=== PATIENT | female | born 2000 | race Caucasian/White ===

== ENCOUNTER 2018-11-24 09:06 | Emergency (ER) | payer BC ==
[2018-11-24] MEDS ORDERED: Sodium Chloride 0.9% 1,000 ML IV ONE (09:10)
[2018-11-24] MEDS ORDERED: Ondansetron 4 MG/2 ML SDV IVPUSH ONE (09:10)
[2018-11-24] MEDS ORDERED: Sodium Chloride 0.9% 10 ML Syringe FLUSH PRN (09:10)
[2018-11-24] MEDS ORDERED: Sodium Chloride 0.9% 2.5 ML Syringe FLUSH PRN (09:10)
[2018-11-24] MEDS ORDERED: Morphine 2 MG/ML Syringe IVPUSH ONE (09:10)
--- NOTE | 2018-11-24 09:12 | EDM.PDOC ---
ED HPI GENERAL MEDICAL PROBLEM - General Time Seen by Provider: 11/24/18 09:09 Source of Information: Reports: Patient History Limitations: Reports: No Limitations - History of Present Illness INITIAL COMMENTS - FREE TEXT/NARRATIVE: History of present illness: []She arrived by EMS with abdominal pain that started last night with vomiting. Patient has a history of Crohn's and kidney stones she does not feel like this is a Crohn's flareup. Her pain radiates from her left flank down to her left lower abdomen and pelvis and it feels like a kidney stone. She is currently on her period and is unsure if she has had blood in her urine. She denies any fevers or diarrhea. Review of systems: As per history of present illness and below otherwise all systems reviewed and negative. Past medical history: As per history of present illness and as reviewed below otherwise noncontributory. Surgical history: As per history of present illness and as reviewed below otherwise noncontributory. Social history: No reported history of drug or alcohol abuse. Family history: As per history of present illness and as reviewed below otherwise noncontributory. Physical exam: General: Well developed, well nourished in NAD HEENT: Atraumatic, normocephalic, pupils reactive, negative for conjunctival pallor or scleral icterus, mucous membranes moist, throat clear, neck supple, nontender, trachea midline. Lungs: Clear to auscultation, breath sounds equal bilaterally, chest nontender. Heart: S1S2, regular, negative for clicks, rubs, or JVD. Abdomen: NABS, Soft, nondistended, tender periumbilical, left lower quadrant and right lower quadrant without rebound or guarding. Negative for masses or hepatosplenomegaly. Negative for costovertebral tenderness. Pelvis: Stable nontender. Genitourinary: Deferred. Rectal: Deferred. Extremities: Atraumatic, negative for cords or calf pain. Neurovascular unremarkable. Neuro: Awake, alert, oriented. Cranial nerves II through XII unremarkable. Cerebellum unremarkable. Motor and sensory unremarkable throughout. Exam nonfocal. Skin:warm and dry Diagnostics: CBC, chemistry, lipase, UA, hCG CT abdomen and pelvis showing 3 mm nonobstructing ureteral stone Therapeutics: IV fluids, morphine, Zofran ED Course: Improved Impression: Ureteral lithiasis Prescriptions: Flomax, tramadol, Zofran Plan: Follow-up with Dr. Rooney Definitive disposition and diagnosis as appropriate pending reevaluation and review of above. Left Lower Abdominal Pain Score (Numeric/FACES): 10 - Related Data Allergies Allergy/AdvReac Type Severity Reaction Status Date / Time No Known Allergies Allergy Verified 11/24/18 10:09 Home Meds: Home Meds Ondansetron HCl [Zofran] 4 mg PO Q4HR #12 tablet 11/24/18 [Rx] Tamsulosin HCl [Flomax] 0.4 mg PO DAILY #14 cap.er.24h 11/24/18 [Rx] predniSONE [Prednisone] 20 mg PO DAILY 11/24/18 [History] traMADol HCl [Tramadol HCl] 50 mg PO Q6H PRN #16 tablet 11/24/18 [Rx] ED ROS GENERAL - Review of Systems Review Of Systems: See Below ED EXAM, GI/ABD - Physical Exam Exam: See Below Course - Vital Signs Last Recorded V/S: Last Vital Signs Temp 97.0 F 11/24/18 09:06 Pulse 58 L 11/24/18 09:06 Resp 18 11/24/18 09:06 BP 115/71 11/24/18 09:06 Pulse Ox 98 11/24/18 09:06 - Orders/Labs/Meds Orders: Active Orders 24 hr Category Date Time Status Sodium Chloride 0.9% [Saline Flush] Med 11/24/18 09:10 Active 10 ml FLUSH ASDIRECTED PRN Sodium Chloride 0.9% [Saline Flush] Med 11/24/18 09:10 Active 2.5 ml FLUSH ASDIRECTED PRN Saline Lock Insert [OM.PC] Stat Oth 11/24/18 09:10 Ordered Medication Orders Sodium Chloride (Saline Flush) 10 ml FLUSH ASDIRECTED PRN PRN Reason: Keep Vein Open Sodium Chloride (Saline Flush) 2.5 ml FLUSH ASDIRECTED PRN PRN Reason: Keep Vein Open Labs: Laboratory Tests 11/24/18 11/24/18 11/24/18 Range/Units 08:35 08:35 08:35 WBC 11.75 H (4.0-11.0) K/uL RBC 4.11 L (4.30-5.90) M/uL Hgb 9.5 L (12.0-16.0) g/dL Hct 32.1 L (36.0-46.0) % MCV 78.1 L (80.0-98.0) fL MCH 23.1 L (27.0-32.0) pg MCHC 29.6 L (31.0-37.0) g/dL RDW Std Deviation 43.7 (28.0-62.0) fl RDW Coeff of Eugenia 15 (11.0-15.0) % Plt Count 478 H (150-400) K/uL MPV 9.70 (7.40-12.00) fL Neut % (Auto) 73.9 (48.0-80.0) % Lymph % (Auto) 18.1 (16.0-40.0) % [place] % (Auto) 7.8 (0.0-15.0) % Eos % (Auto) 0.1 (0.0-7.0) % Baso % (Auto) 0.1 (0.0-1.5) % Neut # (Auto) 8.7 H (1.4-5.7) K/uL Lymph # (Auto) 2.1 (0.6-2.4) K/uL [place] # (Auto) 0.9 H (0.0-0.8) K/uL Eos # (Auto) 0.0 (0.0-0.7) K/uL Baso # (Auto) 0.0 (0.0-0.1) K/uL Nucleated RBC % 0.0 /100WBC Nucleated RBCs # 0 K/uL Sodium 140 (136-145) mmol/L Potassium 3.8 (3.5-5.1) mmol/L Chloride 104 (98-107) mmol/L Carbon Dioxide 25.9 (21.0-32.0) mmol/L BUN 16 (7.0-18.0) mg/dL Creatinine 1.0 (0.6-1.0) mg/dL Est Cr Clr Drug Dosing TNP Estimated GFR (MDRD) > 60.0 ml/min Glucose 89 (74-106) mg/dL Calcium 10.0 (8.5-10.1) mg/dL Total Bilirubin 0.3 (0.2-1.0) mg/dL AST 23 (15-37) IU/L ALT 43 (14-63) IU/L Alkaline Phosphatase 73 (46-116) U/L Total Protein 7.1 (6.4-8.2) g/dL Albumin 3.0 L (3.4-5.0) g/dL Globulin 4.1 H (2.6-4.0) g/dL Albumin/Globulin Ratio 0.7 L (0.9-1.6) Lipase 54 L (73-393) U/L HCG, Qual NEGATIVE (NEG) Meds: Medications Generic Name Dose Route Start Last Admin Trade Name Freq PRN Reason Stop Dose Admin Sodium Chloride 10 ml 11/24/18 09:10 Saline Flush FLUSH ASDIRECTED PRN Keep Vein Open Sodium Chloride 2.5 ml 11/24/18 09:10 Saline Flush FLUSH ASDIRECTED PRN Keep Vein Open Discontinued Medications Generic Name Dose Route Start Last Admin Trade Name Freq PRN Reason Stop Dose Admin Sodium Chloride 1,000 mls @ 999 mls/hr 11/24/18 09:10 11/24/18 09:21 Normal Saline IV 11/24/18 10:10 999 mls/hr .Bolus ONE Administration Iopamidol 70 ml 11/24/18 10:22 11/24/18 10:27 Isovue Multipack-370 (76%) IVPUSH 11/24/18 10:23 70 ml ONETIME STA Administration Ketorolac Tromethamine 30 mg 11/24/18 10:42 11/24/18 10:50 Toradol IVPUSH 11/24/18 10:43 30 mg ONETIME ONE Administration Metoclopramide HCl 10 mg 11/24/18 10:42 11/24/18 10:50 Reglan IV 11/24/18 10:43 10 mg ONETIME ONE Administration Morphine Sulfate 2 mg 11/24/18 09:10 11/24/18 09:21 Morphine IVPUSH 11/24/18 09:11 2 mg ONETIME ONE Administration Ondansetron HCl 4 mg 11/24/18 09:10 11/24/18 09:21 Zofran IVPUSH 11/24/18 09:11 4 mg ONETIME ONE Administration Departure - Departure Time of Disposition: 11:22 Disposition: Home, Self-Care 01 Clinical Impression: Ureterolithiasis - Discharge Information *PRESCRIPTION DRUG MONITORING PROGRAM REVIEWED*: Not Applicable *COPY OF PRESCRIPTION DRUG MONITORING REPORT IN PATIENT CHLOE: Not Applicable Prescriptions: Ondansetron HCl [Zofran] 4 mg PO Q4HR #12 tablet Tamsulosin HCl [Flomax] 0.4 mg PO DAILY #14 cap.er.24h traMADol HCl [Tramadol HCl] 50 mg PO Q6H PRN #16 tablet PRN Reason: Pain Instructions: Kidney Stones, [id number] Referrals: PCP,Unobtain [Primary Care Provider] - Forms: ED Department Discharge Additional Instructions: The following information is given to patients seen in the emergency department who are being discharged to home. This information is to outline your options for follow-up care. We provide all patients seen in our emergency department with a follow-up referral. The need for follow-up, as well as the timing and circumstances, are variable depending upon the specifics of your emergency department visit. If you don't have a primary care physician on staff, we will provide you with a referral. We always advise you to contact your personal physician following an emergency department visit to inform them of the circumstance of the visit and for follow-up with them and/or the need for any referrals to a consulting specialist. The emergency department will also refer you to a specialist when appropriate. This referral assures that you have the opportunity for follow-up care with a specialist. All of these measure are taken in an effort to provide you with optimal care, which includes your follow-up. Under all circumstances we always encourage you to contact your private physician who remains a resource for coordinating your care. When calling for follow-up care, please make the office aware that this follow-up is from your recent emergency room visit. If for any reason you are refused follow-up, please contact the [facility] Emergency Department at and asked to speak to the emergency department charge nurse. Take meds as directed, follow up with your primary care physician, return to ER if symptoms worsen or change. [facility] Primary [facility] [address] [place] [id number] [facility] Specialty Care - Urology [address] [place] [id number] - My Orders Last 24 Hours: My Active Orders 11/24/18 09:10 Sodium Chloride 0.9% [Saline Flush] 10 ml FLUSH ASDIRECTED PRN Sodium Chloride 0.9% [Saline Flush] 2.5 ml FLUSH ASDIRECTED PRN Saline Lock Insert [OM.PC] Stat - Assessment/Plan Last 24 Hours: My Active Orders 11/24/18 09:10 Sodium Chloride 0.9% [Saline Flush] 10 ml FLUSH ASDIRECTED PRN Sodium Chloride 0.9% [Saline Flush] 2.5 ml FLUSH ASDIRECTED PRN Saline Lock Insert [OM.PC] Stat
[2018-11-24 09:43] LABS: BLOOD UREA NITROGEN,BUN 16 mg/dL (7.0-18.0); CARBON DIOXIDE,CO2 25.9 mmol/L (21.0-32.0); CHLORIDE,CL 104 mmol/L (98-107); GLUCOSE RANDOM 89 mg/dL (74-106); LIPASE 54 U/L (73-393); POTASSIUM,K 3.8 mmol/L (3.5-5.1); SODIUM,NA 140 mmol/L (136-145)
[2018-11-24] MEDS ORDERED: Iopamidol 755 MG/ML 500 ML Multipack Bottle IVPUSH STA (10:22)
[2018-11-24] MEDS ORDERED: Ketorolac 30 MG/ML SDV IVPUSH ONE (10:42)
[2018-11-24] MEDS ORDERED: Metoclopramide 10 MG/2 ML SDV IV ONE (10:42)
--- NOTE | 2018-11-24 10:52 | CT ---
INDICATION: Left lower quadrant abdominal pain. History of Crohn`s disease. TECHNIQUE: CT scan of the abdomen and pelvis with 70 cc of Isovue-370 given intravenously. FINDINGS: The lung bases are unremarkable. 1.1 x 0.7 cm capsular cyst over segment 7 of the liver. No other focal abnormalities identified in the visualized portions of the liver, spleen, pancreas, adrenal glands, and kidneys. 3 mm stone in the proximal left ureter which causes trace hydronephrosis and ureteral edema. Single nonobstructing nephrolith in the interpolar region of the right kidney. No other uroliths. No right-sided hydronephrosis. Bowel wall thickening and mucosal hyper enhancement involving the distal 10-15 cm of terminal ileum with mild adjacent adenopathy. The remainder of the GI tract is incompletely distended but shows no gross abnormalities. Trace free fluid in the pelvis. No retroperitoneal, pelvic sidewall, or mesenteric adenopathy. IMPRESSION: 1. 3 mm stone in the proximal left ureter which causes trace hydronephrosis and ureteral edema. 2. Bowel wall thickening and mucosal hyperenhancement involving the terminal ileum representing the patient`s Crohn`s disease. Dictated by Og Perkins MD @ 11/24/2018 10:51:32 AM Please note that all CT scans at this facility use dose modulation, iterative reconstruction, and/or weight-based dosing when appropriate to reduce radiation dose to as low as reasonably achievable. Dictated by: Og Perkins MD @ 11/24/2018 10:51:45 (Electronically Signed)
== END 2018-11-24 11:35 | disposition home or self-care (01) ==
LOC: MW.ED 09:06
DX: N13.2 Hydronephrosis with renal and ureteral calculous obstruction (principal); Z79.899 Other long term (current) drug therapy
CPT/HCPCS: 74177; 80053; 83690; 84703; 85025; 96361; 96374; 96375; 99284; J1885; J2270; J2405; J2765; J7040; Q9967; 99283

== ENCOUNTER 2019-01-06 10:14 | Emergency (ER) | payer BC ==
--- NOTE | 2019-01-06 10:26 | EDM.PDOC ---
ED HPI GENERAL MEDICAL PROBLEM - General Chief Complaint: Flank Pain Stated Complaint: KIDNEY STONE Time Seen by Provider: 01/06/19 10:21 Source of Information: Reports: Patient History Limitations: Reports: No Limitations - History of Present Illness INITIAL COMMENTS - FREE TEXT/NARRATIVE: HISTORY AND PHYSICAL: History of present illness: Patient is a 18-year-old female who presents to the ED today with concern right- sided flank pain and nausea since this morning. Patient states she was seen here with a kidney stone not too long ago and is unsure what side the kidney stone was on. Patient states she has not followed up with urology or with any primary care provider from that visit. Patient states that pain had resolved shortly after discharge and she has not had any pain since. Patient states starting today she began having right-sided flank pain. Patient states she has not taken anything for her symptoms. Patient has a history of Crohn's disease and ankylosing spondylitis. Patient was seen and evaluated in the ED on 11/24/18 and was found to have a 3 mm proximal left ureter stone and was sent home with instruction to follow up with the urologist and given medication for pain and flomax. Patient denies fever, chills, chest pain, shortness of breath, or cough. Denies headache, neck stiff ness, change in vision, syncope, or near syncope. Denies vomiting, diarrhea, constipation, or dysuria. Has not noted any blood in urine or stool. Review of systems: As per history of present illness and below otherwise all systems reviewed and negative. Past medical history: As per history of present illness and as reviewed below otherwise noncontributory. Surgical history: As per history of present illness and as reviewed below otherwise noncontributory. Social history: See social history for further information Family history: As per history of present illness and as reviewed below otherwise noncontributory. Physical exam: General: Patient is alert, oriented, and in no acute distress. Patient laying comfortably on exam table. HEENT: Atraumatic, normocephalic, pupils equal and reactive bilaterally, negative for conjunctival pallor or scleral icterus, mucous membranes moist, TMs normal bilaterally, throat clear, neck supple, nontender, trachea midline. No drooling or trismus noted. No meningeal signs. No hot potato voice noted. Lungs: Clear to auscultation, breath sounds equal bilaterally, chest nontender. Heart: S1S2, regular rate and rhythm without overt murmur Abdomen: Soft, nondistended, nontender. Negative for masses or hepatosplenomegaly. Positive for costovertebral tenderness of the right. Pelvis: Stable nontender. Genitourinary: Deferred. Rectal: Deferred. Skin: Intact, warm, dry. No lesions or rashes noted. Extremities: Atraumatic, negative for cords or calf pain. Neurovascular unremarkable. Neuro: Awake, alert, oriented. Cranial nerves II through XII unremarkable. Cerebellum unremarkable. Motor and sensory unremarkable throughout. Exam nonfocal. Notes: Dr. Leigh, urology collection technician, consulted on patient and has come in to personally see patient in the ED. See his official consult note for further treatment and disposition for patient. Discussed the importance for follow-up with Dr. Ceballos. Voices understanding and is agreeable to plan of care. Denies any further questions or concerns at this time. Diagnostics: UA, uhcg, CBC, CMP, UA, lipase, abdominal pelvic CT, lactate, blood cultures 2 Therapeutics: Saline, Zofran, Toradol, Rocephin Prescription: See Dr. Leigh note for further treatment/disposition Impression: Ureterolithiasis Urinary Tract Infection Plan: 1. Take medication that Dr. Ceballos has prescribed to you. You can also use Tylenol and ibuprofen as directed for pain and discomfort. 2. Follow-up with Dr. Ceballos as scheduled and as discussed. Return to the ED as needed and as discussed. Definitive disposition and diagnosis as appropriate pending reevaluation and review of above. right flank Pain Score (Numeric/FACES): 10 - Related Data Allergies Allergy/AdvReac Type Severity Reaction Status Date / Time No Known Allergies Allergy Verified 01/06/19 10:17 Home Meds: Home Meds predniSONE [Prednisone] 20 mg PO DAILY 11/24/18 [History] traMADol HCl [Tramadol HCl] 50 mg PO Q6H PRN #16 tablet 11/24/18 [Rx] Past Medical History - Past Health History Medical/Surgical History: Denies Medical/Surgical History Gastrointestinal History: Reports: Other (See Below) Other Gastrointestinal History: Crohns Genitourinary History: Reports: Renal Calculus Hematologic History: Reports: Anemia - Past Surgical History HEENT Surgical History: Reports: Adenoidectomy Social & Family History - Family History Family Medical History: Noncontributory - Tobacco Use Smoking Status *Q: Never Smoker - Recreational Drug Use Recreational Drug Use: No ED ROS GENERAL - Review of Systems Review Of Systems: ROS reveals no pertinent complaints other than HPI. ED EXAM, GENERAL - Physical Exam Exam: See Below (See dictation) Course - Vital Signs Last Recorded V/S: Last Vital Signs Temp 97.6 F 01/06/19 12:29 Pulse 61 01/06/19 12:29 Resp 18 01/06/19 12:29 BP 121/65 01/06/19 12:29 Pulse Ox 98 01/06/19 12:29 - Orders/Labs/Meds Orders: Active Orders 24 hr Category Date Time Status Notify Provider Consults [RC] ASDIRECTED Care 01/06/19 11:50 Active Consult to Physician [CONS] Stat Cons 01/06/19 11:49 Active CULTURE BLOOD [BC] Stat Lab 01/06/19 11:48 Received CULTURE BLOOD [BC] Stat Lab 01/06/19 12:12 Received CULTURE URINE [RM] Stat Lab 01/06/19 10:28 Received Blood Culture x2 Reflex Set [OM.PC] Stat Oth 01/06/19 11:32 Ordered Labs: Laboratory Tests 01/06/19 01/06/19 01/06/19 Range/Units 10:28 10:28 10:40 WBC 15.02 H (4.0-11.0) K/uL RBC 4.05 L (4.30-5.90) M/uL Hgb 10.1 L (12.0-16.0) g/dL Hct 33.8 L (36.0-46.0) % MCV 83.5 (80.0-98.0) fL MCH 24.9 L (27.0-32.0) pg MCHC 29.9 L (31.0-37.0) g/dL RDW Std Deviation 57.2 (28.0-62.0) fl RDW Coeff of Eugenia 19 H (11.0-15.0) % Plt Count 381 (150-400) K/uL MPV 9.70 (7.40-12.00) fL Add Manual Diff YES Neutrophils % (Manual) 69 (48.0-80.0) % Band Neutrophils % 2 % Lymphocytes % (Manual) 25 (16.0-40.0) % Monocytes % (Manual) 4 (0.0-15.0) % Nucleated RBC % 0.0 /100WBC Absolute Seg Neuts 10.4 H (1.4-5.7) Band Neutrophils # 0.3 Lymphocytes # (Manual) 3.8 H (0.6-2.4) Monocytes # (Manual) 0.6 (0.0-0.8) Nucleated RBCs # 0 K/uL Lactate (0.20-2.00) mmol/L Sodium (136-145) mmol/L Potassium (3.5-5.1) mmol/L Chloride (98-107) mmol/L Carbon Dioxide (21.0-32.0) mmol/L BUN (7.0-18.0) mg/dL Creatinine (0.6-1.0) mg/dL Est Cr Clr Drug Dosing mL/min Estimated GFR (MDRD) ml/min Glucose (74-106) mg/dL Calcium (8.5-10.1) mg/dL Total Bilirubin (0.2-1.0) mg/dL AST (15-37) IU/L ALT (14-63) IU/L Alkaline Phosphatase (46-116) U/L Total Protein (6.4-8.2) g/dL Albumin (3.4-5.0) g/dL Globulin (2.6-4.0) g/dL Albumin/Globulin Ratio (0.9-1.6) Lipase (73-393) U/L Urine Color DARK YELLOW Urine Appearance CLEAR Urine pH 7.0 (5.0-8.0) Ur Specific [place] 1.015 (1.001-1.035) Urine Protein 30 H (NEGATIVE) mg/dL Urine Glucose (UA) 100 H (NEGATIVE) mg/dL Urine Ketones NEGATIVE (NEGATIVE) mg/dL Urine Occult Blood TRACE-INTACT H (NEGATIVE) Urine Nitrite POSITIVE H (NEGATIVE) Urine Bilirubin NEGATIVE (NEGATIVE) Urine Urobilinogen 4.0 H (<2.0) EU/dL Ur Leukocyte Esterase TRACE H (NEGATIVE) Urine RBC 1-3 (0-2/HPF) Urine WBC 1-3 (0-5/HPF) Ur Epithelial Cells FEW (NONE-FEW) Amorphous Sediment FEW (NEGATIVE) Urine Bacteria FEW (NEGATIVE) Urine Mucus FEW (NONE-MOD) Urine HCG, Qual NEGATIVE (NEGATIVE) 10/27/19 10/27/19 Range/Units 10:40 11:48 WBC (4.0-11.0) K/uL RBC (4.30-5.90) M/uL Hgb (12.0-16.0) g/dL Hct (36.0-46.0) % MCV (80.0-98.0) fL MCH (27.0-32.0) pg MCHC (31.0-37.0) g/dL RDW Std Deviation (28.0-62.0) fl RDW Coeff of Eugenia (11.0-15.0) % Plt Count (150-400) K/uL MPV (7.40-12.00) fL Add Manual Diff Neutrophils % (Manual) (48.0-80.0) % Band Neutrophils % % Lymphocytes % (Manual) (16.0-40.0) % Monocytes % (Manual) (0.0-15.0) % Nucleated RBC % /100WBC Absolute Seg Neuts (1.4-5.7) Band Neutrophils # Lymphocytes # (Manual) (0.6-2.4) Monocytes # (Manual) (0.0-0.8) Nucleated RBCs # K/uL Lactate 1.3 (0.20-2.00) mmol/L Sodium 146 H (136-145) mmol/L Potassium 3.6 (3.5-5.1) mmol/L Chloride 108 H (98-107) mmol/L Carbon Dioxide 26.4 (21.0-32.0) mmol/L BUN 19 H (7.0-18.0) mg/dL Creatinine 1.1 H (0.6-1.0) mg/dL Est Cr Clr Drug Dosing 79.33 mL/min Estimated GFR (MDRD) > 60.0 ml/min Glucose 94 (74-106) mg/dL Calcium 9.0 (8.5-10.1) mg/dL Total Bilirubin 0.2 (0.2-1.0) mg/dL AST 11 L (15-37) IU/L ALT 17 (14-63) IU/L Alkaline Phosphatase 51 (46-116) U/L Total Protein 7.2 (6.4-8.2) g/dL Albumin 3.5 (3.4-5.0) g/dL Globulin 3.7 (2.6-4.0) g/dL Albumin/Globulin Ratio 0.9 (0.9-1.6) Lipase 68 L (73-393) U/L Urine Color Urine Appearance Urine pH (5.0-8.0) Ur Specific [place] (1.001-1.035) Urine Protein (NEGATIVE) mg/dL Urine Glucose (UA) (NEGATIVE) mg/dL Urine Ketones (NEGATIVE) mg/dL Urine Occult Blood (NEGATIVE) Urine Nitrite (NEGATIVE) Urine Bilirubin (NEGATIVE) Urine Urobilinogen (<2.0) EU/dL Ur Leukocyte Esterase (NEGATIVE) Urine RBC (0-2/HPF) Urine WBC (0-5/HPF) Ur Epithelial Cells (NONE-FEW) Amorphous Sediment (NEGATIVE) Urine Bacteria (NEGATIVE) Urine Mucus (NONE-MOD) Urine HCG, Qual (NEGATIVE) Meds: Medications Discontinued Medications Generic Name Dose Route Start Last Admin Trade Name Freq PRN Reason Stop Dose Admin Sodium Chloride 1,000 mls @ 999 mls/hr 01/06/19 10:31 01/06/19 10:40 Normal Saline IV 01/06/19 11:31 999 mls/hr BOLUS ONE Administration Ceftriaxone Sodium/Dextrose 1 50 mls @ 100 mls/hr 01/06/19 11:32 01/06/19 12: 27 gm/ Premix IV 01/06/19 12:01 100 mls/hr ONETIME ONE Administration Ketorolac Tromethamine 30 mg 01/06/19 10:39 01/06/19 10:41 Toradol IVPUSH 01/06/19 10:40 30 mg ONETIME ONE Administration Ondansetron HCl 4 mg 01/06/19 10:31 01/06/19 10:40 Zofran IVPUSH 01/06/19 10:32 4 mg ONETIME ONE Administration Departure - Departure Time of Disposition: 13:30 Disposition: Home, Self-Care 01 Clinical Impression: Ureterolithiasis Urinary tract infection Qualifiers: Urinary tract infection type: acute cystitis Hematuria presence: with hematuria Qualified Code(s): N30.01 - Acute cystitis with hematuria - Discharge Information Referrals: PCP,Unobtain [Primary Care Provider] - Forms: ED Department Discharge Additional Instructions: The following information is given to patients seen in the emergency department who are being discharged to home. This information is to outline your options for follow-up care. We provide all patients seen in our emergency department with a follow-up referral. The need for follow-up, as well as the timing and circumstances, are variable depending upon the specifics of your emergency department visit. If you don't have a primary care physician on staff, we will provide you with a referral. We always advise you to contact your personal physician following an emergency department visit to inform them of the circumstance of the visit and for follow-up with them and/or the need for any referrals to a consulting specialist. The emergency department will also refer you to a specialist when appropriate. This referral assures that you have the opportunity for follow-up care with a specialist. All of these measure are taken in an effort to provide you with optimal care, which includes your follow-up. Under all circumstances we always encourage you to contact your private physician who remains a resource for coordinating your care. When calling for follow-up care, please make the office aware that this follow-up is from your recent emergency room visit. If for any reason you are refused follow-up, please contact the [facility] Emergency Department at and asked to speak to the emergency department charge nurse. [facility] [address] [place] [address] [address] [facility] - Urology [address] [place] [id number] 1. Take medication that Dr. Ceballos has prescribed to you. You can also use Tylenol and ibuprofen as directed for pain and discomfort. 2. Follow-up with Dr. Ceballos as scheduled and as discussed. Return to the ED as needed and as discussed. - My Orders Last 24 Hours: My Active Orders 01/06/19 10:28 CULTURE URINE [RM] Stat 01/06/19 11:32 Blood Culture x2 Reflex Set [OM.PC] Stat 01/06/19 11:48 CULTURE BLOOD [BC] Stat 01/06/19 11:49 Consult to Physician [CONS] Stat 01/06/19 11:50 Notify Provider Consults [RC] ASDIRECTED 01/06/19 12:12 CULTURE BLOOD [BC] Stat - Assessment/Plan Last 24 Hours: My Active Orders 01/06/19 10:28 CULTURE URINE [RM] Stat 01/06/19 11:32 Blood Culture x2 Reflex Set [OM.PC] Stat 01/06/19 11:48 CULTURE BLOOD [BC] Stat 01/06/19 11:49 Consult to Physician [CONS] Stat 01/06/19 11:50 Notify Provider Consults [RC] ASDIRECTED 01/06/19 12:12 CULTURE BLOOD [BC] Stat
[2019-01-06] MEDS ORDERED: Sodium Chloride 0.9% 1,000 ML IV ONE (10:31)
[2019-01-06] MEDS ORDERED: Ondansetron 4 MG/2 ML SDV IVPUSH ONE (10:31)
[2019-01-06] MEDS ORDERED: Ketorolac 30 MG/ML SDV IVPUSH ONE (10:39)
[2019-01-06 11:22] LABS: BLOOD UREA NITROGEN,BUN 19 mg/dL (7.0-18.0); CARBON DIOXIDE,CO2 26.4 mmol/L (21.0-32.0); CHLORIDE,CL 108 mmol/L (98-107); GLUCOSE RANDOM 94 mg/dL (74-106); LIPASE 68 U/L (73-393); POTASSIUM,K 3.6 mmol/L (3.5-5.1); SODIUM,NA 146 mmol/L (136-145)
[2019-01-06] MEDS ORDERED: cefTRIAXone 1 GM in Premix Bag 1 BAG IV ONE (11:32)
--- NOTE | 2019-01-06 11:37 | CT ---
INDICATION: Pt w/rt flank pain, vomiting since this a.m. Hx of crohns disease. COMPARISON: CT 11/24/2018. TECHNIQUE: Routine noncontrast CT images of the abdomen and pelvis. Sagittal and coronal reformatted series were also generated and reviewed. Total exam DLP 378 mGy-cm. FINDINGS: The lower chest is unremarkable. - The liver, gallbladder, pancreas, spleen and adrenal glands have an unremarkable noncontrast appearance. There are punctate nonobstructing stones in both kidneys. Previously seen left proximal ureteral stone has passed or been removed. There is a new 4 mm right UVJ stone which results in moderate right-sided hydroureteronephrosis. The right kidney is mildly enlarged. No perinephric fluid collection. - The on opacified major vascular structures demonstrate normal course and caliber. No suspicious lymphadenopathy. Small fat containing umbilical hernia. - No bowel obstruction or ascites. Again noted is some inflammatory change and wall thickening of small bowel in the lower abdomen and pelvis, consistent with the patient`s known Crohn disease. No perforation or abscess identified. - The urinary bladder is decompressed. The uterus and adnexa are unremarkable for age. - There are no acute or aggressive osseous findings. IMPRESSION: 1. New 4 mm right UVJ stone which results in moderate right hydroureteronephrosis. 2. Mild inflammatory stranding and wall thickening of loops of small bowel in the lower abdomen and pelvis, consistent with the patient`s known Crohn disease. Findings are similar to appears to the comparison study. No perforation or abscess. 3. Other findings, as above. Dictated by Jose Braga MD @ 01/06/2019 11:35:13 AM Please note that all CT scans at this facility use dose modulation, iterative reconstruction, and/or weight-based dosing when appropriate to reduce radiation dose to as low as reasonably achievable. Dictated by: Jose Braga MD @ 01/06/2019 11:35:22 (Electronically Signed)
--- NOTE | 2019-01-06 17:38 | CONS ---
DATE OF CONSULTATION: 01/06/2019 DATE OF : 2000 PRIMARY CARE PHYSICIAN: Unobvarghese PCP DIAGNOSIS: Right lower ureteral stone. HISTORY OF PRESENT ILLNESS: A 18-year-old presents to the emergency room with sudden onset of right flank pain. She had urinary stones in the past x2. Those 2 past times, she passed her stones. We do not have a stone analysis. PAST MEDICAL HISTORY: Medical history is significant for diagnosis of Crohn disease, which had its implications for urinary stones. She also has ovarian cystic disease. PHYSICAL EXAMINATION: VITAL SIGNS: Temperature is normal, blood pressure is normal, pulse is normal at 60. GENERAL: She is alert. She is oriented. She is not at this point in pain. ABDOMINAL EXAM: Mild tenderness over the right CVA, right lumbar region, right lower quadrant. Left side is normal, abdomen is soft. LABORATORY DATA: Her white blood count is 15,000. Her UA showed positive leukocyte esterase, trace nitrite and only 1 to 5 white blood cells per high-power field. IMPRESSION: Right ureteral stone with a small probability of urinary tract infection. I think it is reasonable at this point to send her home on antibiotics for the next couple of days and a strainer and will see me in 2 days. If she has not passed the stone, then I will arrange for her to have ureteroscopy and stone removal. NIGHAT VILLARREAL /[id number]
== END 2019-01-06 13:45 | disposition home or self-care (01) ==
LOC: MW.ED 10:14
DX: N20.1 Calculus of ureter (principal); N30.01 Acute cystitis with hematuria
CPT/HCPCS: 36415; 74176; 80053; 81001; 81025; 83605; 83690; 85025; 87040; 87086; 96361; 96365; 96375; 99284; J0696; J1885; J2405; J7040

== ENCOUNTER 2019-03-10 19:09 | Emergency (ER) | payer BC ==
--- NOTE | 2019-03-10 20:56 | EDM.PDOC ---
ED HPI GENERAL MEDICAL PROBLEM - General Chief Complaint: ENT Problem Stated Complaint: FLU SYMPTOMS Time Seen by Provider: 03/10/19 19:39 Source of Information: Reports: Patient History Limitations: Reports: No Limitations - History of Present Illness INITIAL COMMENTS - FREE TEXT/NARRATIVE: Presents reporting a couple day history of cough, stuffy nose, sore throat and headache. Exposed to numerous people at her workplace who have the same or similar symptoms. She did not have a flu shot. She does not smoke cigarettes. On control. - Related Data Allergies Allergy/AdvReac Type Severity Reaction Status Date / Time No Known Allergies Allergy Verified 03/10/19 19:21 Home Meds: Home Meds . [No Known Home Meds] 03/10/19 [History] Past Medical History - Past Health History Medical/Surgical History: Denies Medical/Surgical History Gastrointestinal History: Reports: Other (See Below) Other Gastrointestinal History: Crohns Genitourinary History: Reports: Renal Calculus Hematologic History: Reports: Anemia - Infectious Disease History Infectious Disease History: Reports: None - Past Surgical History HEENT Surgical History: Reports: Adenoidectomy Social & Family History - Family History Family Medical History: Noncontributory - Tobacco Use Smoking Status *Q: Never Smoker Second Hand Smoke Exposure: No - Caffeine Use Caffeine Use: Reports: None - Recreational Drug Use Recreational Drug Use: No ED ROS ENT - Review of Systems Review Of Systems: Comprehensive ROS is negative, except as noted in HPI. ED EXAM, ENT - Physical Exam Exam: See Below Exam Limited By: No Limitations General Appearance: Alert, No Apparent Distress Ears: Normal External Exam, Normal TMs Nose: Normal Inspection Mouth/Throat: Pharyngeal Erythema (mild). No: Tonsillar Erythema, Tonsillar Exudates, Tonsillar Swelling Head: Atraumatic, Normocephalic Neck: Normal Inspection, Supple, Non-Tender, Full Range of Motion. No: Lymphadenopathy (L), Lymphadenopathy (R) Respiratory/Chest: No Respiratory Distress, Lungs Clear, Normal Breath Sounds Cardiovascular: Normal Peripheral Pulses, Regular Rate, Rhythm, No Murmur Neurological: Alert, Oriented Psychiatric: Normal Affect, Normal Mood Skin: Warm, Dry, Intact, Normal Color, No Rash Lymphatic: No Adenopathy Course - Vital Signs Last Recorded V/S: Last Vital Signs Temp 36.8 C 03/10/19 19:21 Pulse 94 03/10/19 19:21 Resp 16 12/29/19 19:21 BP 119/61 03/10/19 19:21 Pulse Ox 97 03/10/19 19:21 - Orders/Labs/Meds Orders: Active Orders 24 hr Category Date Time Status CULTURE STREP A CONFIRMATION [RM] Stat Lab 03/10/19 19:26 Results INFLUENZA A+B AG SCREEN [RM] Stat Lab 03/10/19 20:50 Ordered STREP SCRN A RAPID W CULT CONF [RM] Stat Lab 03/10/19 19:26 Results Departure - Departure Time of Disposition: 20:54 Disposition: Home, Self-Care 01 Condition: Good Clinical Impression: Viral syndrome - Discharge Information Referrals: PCP,None [Primary Care Provider] - [facility] [Outside] [facility] [Outside] Additional Instructions: The following information is given to patients seen in the emergency department who are being discharged to home. This information is to outline your options for follow-up care. We provide all patients seen in our emergency department with a follow-up referral. The need for follow-up, as well as the timing and circumstances, are variable depending upon the specifics of your emergency department visit. If you don't have a primary care physician on staff, we will provide you with a referral. We always advise you to contact your personal physician following an emergency department visit to inform them of the circumstance of the visit and for follow-up with them and/or the need for any referrals to a consulting specialist. The emergency department will also refer you to a specialist when appropriate. This referral assures that you have the opportunity for follow-up care with a specialist. All of these measure are taken in an effort to provide you with optimal care, which includes your follow-up. Under all circumstances we always encourage you to contact your private physician who remains a resource for coordinating your care. When calling for follow-up care, please make the office aware that this follow-up is from your recent emergency room visit. If for any reason you are refused follow-up, please contact the [facility] Emergency Department at and asked to speak to the emergency department charge nurse. 1. Drink plenty of fluids and rest 2. Seasonal flu vaccine 3. I'll or ibuprofen as needed for body aches, headache, sore throat Sepsis Event Note - Evaluation Sepsis Screening Result: No Definite Risk - Focused Exam Vital Signs: Vital Signs Temp Pulse Resp BP Pulse Ox 03/10/19 19:21 36.8 C 94 16 119/61 97 Date Exam was Performed: 03/10/19 Time Exam was Performed: 20:52 - My Orders Last 24 Hours: My Active Orders 03/10/19 20:50 INFLUENZA A+B AG SCREEN [RM] Stat - Assessment/Plan Last 24 Hours: My Active Orders 03/10/19 20:50 INFLUENZA A+B AG SCREEN [RM] Stat
== END 2019-03-10 21:00 | disposition home or self-care (01) ==
LOC: MW.ED 19:09
DX: B34.9 Viral infection, unspecified (principal)
CPT/HCPCS: 87081; 87804; 87880-QW; 99282; 99284

== ENCOUNTER 2019-04-01 20:55 | Emergency (ER) | payer BC ==
--- NOTE | 2019-04-01 21:22 | EDM.PDOC ---
ED HPI GENERAL MEDICAL PROBLEM - General Chief Complaint: General Stated Complaint: LOW IRON LEVELS Time Seen by Provider: 04/01/19 21:21 Source of Information: Reports: Patient History Limitations: Reports: No Limitations - History of Present Illness INITIAL COMMENTS - FREE TEXT/NARRATIVE: HISTORY AND PHYSICAL: History of present illness: Patient is a 18-year-old female presents to the ED with complaint of possible anemia. She states for the past few days she is having headache, lightheaded, neck pain. She states when she had these symptoms last time her hemoglobin was 8. She states she has not required a transfusion. She has seen her PCP in the past for this and determined her anemia was secondary to heavy menstrual periods. Patient is on OCPs and states she has had her period on and off for the past few weeks. She denies chest pain, shortness of breath, nausea, vomiting , abdominal, dysuria, hematuria, melena, hematochezia. Review of systems: As per history of present illness and below otherwise all systems reviewed and negative. Past medical history: As per history of present illness and as reviewed below otherwise noncontributory. Surgical history: As per history of present illness and as reviewed below otherwise noncontributory. Social history: No reported history of drug or alcohol abuse. Family history: As per history of present illness and as reviewed below otherwise noncontributory. Physical exam: General: Patient sitting comfortably in no acute distress and nontoxic appearing HEENT: Atraumatic, normocephalic, pupils reactive, negative for conjunctival pallor or scleral icterus, mucous membranes moist, throat clear, neck supple, nontender, trachea midline. No meningeal signs. Lungs: Clear to auscultation, breath sounds equal bilaterally, chest nontender. Heart: S1S2, regular, negative for clicks, rubs, or overt murmur. Abdomen: Soft, nondistended, nontender. Negative for masses or hepatosplenomegaly. Negative for costovertebral tenderness. No rigidity, rebound , guarding. Pelvis: Stable nontender. Genitourinary: Deferred. Rectal: Deferred. Extremities: Atraumatic, negative for cords or calf pain. Neurovascular unremarkable. Neuro: Awake, alert, oriented. Cranial nerves II through XII unremarkable. Cerebellum unremarkable. Motor and sensory unremarkable throughout. Exam nonfocal. Notes: Diagnostics: CBC, CMP, UA, hcg Therapeutics: none Prescriptions: Impression: Medical screening exam, dizziness Plan: Follow up with primary care provider Return to ED as needed as discussed Definitive disposition and diagnosis as appropriate pending reevaluation and review of above. - Related Data Allergies Allergy/AdvReac Type Severity Reaction Status Date / Time No Known Allergies Allergy Verified 04/01/19 21:06 Home Meds: Home Meds Control 04/01/19 [History] Past Medical History - Past Health History Medical/Surgical History: Denies Medical/Surgical History Cardiovascular History: Reports: None Respiratory History: Reports: None Gastrointestinal History: Reports: Other (See Below) Other Gastrointestinal History: Crohns Genitourinary History: Reports: Renal Calculus [employer] History: Reports: None Musculoskeletal History: Reports: None Neurological History: Reports: None Psychiatric History: Reports: None Endocrine/Metabolic History: Reports: None Hematologic History: Reports: Anemia Dermatologic History: Reports: None - Infectious Disease History Infectious Disease History: Reports: None - Past Surgical History HEENT Surgical History: Reports: Adenoidectomy Social & Family History - Family History Family Medical History: Noncontributory - Tobacco Use Smoking Status *Q: Never Smoker - Caffeine Use Caffeine Use: Reports: None - Recreational Drug Use Recreational Drug Use: No ED ROS GENERAL - Review of Systems Review Of Systems: Comprehensive ROS is negative, except as noted in HPI. ED EXAM, GENERAL - Physical Exam Exam: See Below (see dictation) Course - Vital Signs Last Recorded V/S: Last Vital Signs Temp 97.8 F 04/01/19 21:07 Pulse 101 H 04/01/19 21:07 Resp 14 04/01/19 21:07 BP 136/70 04/01/19 21:07 Pulse Ox 99 04/01/19 21:07 - Orders/Labs/Meds Labs: Laboratory Tests 04/01/19 04/01/19 04/01/19 Range/Units 21:28 21:28 21:30 WBC 6.62 (4.0-11.0) K/uL RBC 3.85 L (4.30-5.90) M/uL Hgb 10.6 L (12.0-16.0) g/dL Hct 32.7 L (36.0-46.0) % MCV 84.9 (80.0-98.0) fL MCH 27.5 (27.0-32.0) pg MCHC 32.4 (31.0-37.0) g/dL RDW Std Deviation 42.8 (28.0-62.0) fl RDW Coeff of [place] 14 (11.0-15.0) % Plt Count 329 (150-400) K/uL MPV 11.10 (7.40-12.00) fL Neut % (Auto) 60.8 (48.0-80.0) % Lymph % (Auto) 31.6 (16.0-40.0) % [place] % (Auto) 5.7 (0.0-15.0) % Eos % (Auto) 1.4 (0.0-7.0) % Baso % (Auto) 0.5 (0.0-1.5) % Neut # (Auto) 4.0 (1.4-5.7) K/uL Lymph # (Auto) 2.1 (0.6-2.4) K/uL [place] # (Auto) 0.4 (0.0-0.8) K/uL Eos # (Auto) 0.1 (0.0-0.7) K/uL Baso # (Auto) 0.0 (0.0-0.1) K/uL Nucleated RBC % 0.0 /100WBC Nucleated RBCs # 0 K/uL Sodium 140 (136-145) mmol/L Potassium 3.9 (3.5-5.1) mmol/L Chloride 105 (98-107) mmol/L Carbon Dioxide 25.7 (21.0-32.0) mmol/L BUN 12 (7.0-18.0) mg/dL Creatinine 0.8 (0.6-1.0) mg/dL Est Cr Clr Drug Dosing 109.08 mL/min Estimated GFR (MDRD) > 60.0 ml/min Glucose 91 (74-106) mg/dL Calcium 9.0 (8.5-10.1) mg/dL Total Bilirubin 0.2 (0.2-1.0) mg/dL AST 12 L (15-37) IU/L ALT 19 (14-63) IU/L Alkaline Phosphatase 59 (46-116) U/L Total Protein 7.2 (6.4-8.2) g/dL Albumin 3.5 (3.4-5.0) g/dL Globulin 3.7 (2.6-4.0) g/dL Albumin/Globulin Ratio 0.9 (0.9-1.6) Urine Color YELLOW Urine Appearance CLEAR Urine pH 7.0 (5.0-8.0) Ur Specific [place] 1.015 (1.001-1.035) Urine Protein NEGATIVE (NEGATIVE) mg/dL Urine Glucose (UA) NEGATIVE (NEGATIVE) mg/dL Urine Ketones NEGATIVE (NEGATIVE) mg/dL Urine Occult Blood NEGATIVE (NEGATIVE) Urine Nitrite NEGATIVE (NEGATIVE) Urine Bilirubin NEGATIVE (NEGATIVE) Urine Urobilinogen 0.2 (<2.0) EU/dL Ur Leukocyte Esterase NEGATIVE (NEGATIVE) Urine HCG, Qual (NEGATIVE) 04/01/19 Range/Units 21:30 WBC (4.0-11.0) K/uL RBC (4.30-5.90) M/uL Hgb (12.0-16.0) g/dL Hct (36.0-46.0) % MCV (80.0-98.0) fL MCH (27.0-32.0) pg MCHC (31.0-37.0) g/dL RDW Std Deviation (28.0-62.0) fl RDW Coeff of [place] (11.0-15.0) % Plt Count (150-400) K/uL MPV (7.40-12.00) fL Neut % (Auto) (48.0-80.0) % Lymph % (Auto) (16.0-40.0) % [place] % (Auto) (0.0-15.0) % Eos % (Auto) (0.0-7.0) % Baso % (Auto) (0.0-1.5) % Neut # (Auto) (1.4-5.7) K/uL Lymph # (Auto) (0.6-2.4) K/uL [place] # (Auto) (0.0-0.8) K/uL Eos # (Auto) (0.0-0.7) K/uL Baso # (Auto) (0.0-0.1) K/uL Nucleated RBC % /100WBC Nucleated RBCs # K/uL Sodium (136-145) mmol/L Potassium (3.5-5.1) mmol/L Chloride (98-107) mmol/L Carbon Dioxide (21.0-32.0) mmol/L BUN (7.0-18.0) mg/dL Creatinine (0.6-1.0) mg/dL Est Cr Clr Drug Dosing mL/min Estimated GFR (MDRD) ml/min Glucose (74-106) mg/dL Calcium (8.5-10.1) mg/dL Total Bilirubin (0.2-1.0) mg/dL AST (15-37) IU/L ALT (14-63) IU/L Alkaline Phosphatase (46-116) U/L Total Protein (6.4-8.2) g/dL Albumin (3.4-5.0) g/dL Globulin (2.6-4.0) g/dL Albumin/Globulin Ratio (0.9-1.6) Urine Color Urine Appearance Urine pH (5.0-8.0) Ur Specific [place] (1.001-1.035) Urine Protein (NEGATIVE) mg/dL Urine Glucose (UA) (NEGATIVE) mg/dL Urine Ketones (NEGATIVE) mg/dL Urine Occult Blood (NEGATIVE) Urine Nitrite (NEGATIVE) Urine Bilirubin (NEGATIVE) Urine Urobilinogen (<2.0) EU/dL Ur Leukocyte Esterase (NEGATIVE) Urine HCG, Qual NEGATIVE (NEGATIVE) Departure - Departure Time of Disposition: 22:03 Disposition: Home, Self-Care 01 Condition: Good Clinical Impression: Encounter for medical screening examination - Discharge Information Referrals: PCP,None [Primary Care Provider] - Forms: ED Department Discharge Additional Instructions: The following information is given to patients seen in the emergency department who are being discharged to home. This information is to outline your options for follow-up care. We provide all patients seen in our emergency department with a follow-up referral. The need for follow-up, as well as the timing and circumstances, are variable depending upon the specifics of your emergency department visit. If you don't have a primary care physician on staff, we will provide you with a referral. We always advise you to contact your personal physician following an emergency department visit to inform them of the circumstance of the visit and for follow-up with them and/or the need for any referrals to a consulting specialist. The emergency department will also refer you to a specialist when appropriate. This referral assures that you have the opportunity for follow-up care with a specialist. All of these measure are taken in an effort to provide you with optimal care, which includes your follow-up. Under all circumstances we always encourage you to contact your private physician who remains a resource for coordinating your care. When calling for follow-up care, please make the office aware that this follow-up is from your recent emergency room visit. If for any reason you are refused follow-up, please contact the [facility] Emergency Department at and asked to speak to the emergency department charge nurse. [facility] [address] [place] [id number] [address] [address] Follow up with primary care provider Return to ED as needed as discussed Sepsis Event Note - Evaluation Sepsis Screening Result: No Definite Risk - Focused Exam Vital Signs: Vital Signs Temp Pulse Resp BP Pulse Ox 04/01/19 21:07 97.8 F 101 H 14 136/70 99 Date Exam was Performed: 04/01/19 Time Exam was Performed: 22:04
[2019-04-01 21:59] LABS: BLOOD UREA NITROGEN,BUN 12 mg/dL (7.0-18.0); CARBON DIOXIDE,CO2 25.7 mmol/L (21.0-32.0); CHLORIDE,CL 105 mmol/L (98-107); GLUCOSE RANDOM 91 mg/dL (74-106); POTASSIUM,K 3.9 mmol/L (3.5-5.1); SODIUM,NA 140 mmol/L (136-145)
== END 2019-04-01 22:13 | disposition home or self-care (01) ==
LOC: MW.ED 20:55
DX: R42 Dizziness and giddiness (principal)
CPT/HCPCS: 36415; 80053; 81003; 81025; 85025; 99282; 99284

== ENCOUNTER 2019-04-15 21:48 | Emergency (ER) | payer BC ==
--- NOTE | 2019-04-15 22:53 | EDM.PDOC ---
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 She denies any trauma to the wrist and says that certain movements will trigger it and since she was a child she has not followed up with an nurse orthopedic. She also has migraine headaches and was told by her neurologist at home to not take ibuprofen or Tylenol. She denies any new injuries and has no numbness or tingling in her hand and no proximal forearm elbow or shoulder pain. Review of systems: As per history of present illness and below otherwise all systems reviewed and negative. Past medical history: As per history of present illness and as reviewed below otherwise noncontributory. Surgical history: As per history of present illness and as reviewed below otherwise noncontributory. Social history: No reported history of drug or alcohol abuse. Family history: As per history of present illness and as reviewed below otherwise noncontributory. Physical exam: HEENT: Atraumatic, normocephalic,, negative for conjunctival pallor or scleral icterus, mucous membranes moist, throat clear, neck supple, nontender, trachea midline. Lungs: Clear to auscultation, breath sounds equal bilaterally, chest nontender. Heart: S1S2, regular, and rhythm no overt murmurs Abdomen: Soft, nondistended, nontender. Negative for masses or hepatosplenomegaly. Negative for costovertebral tenderness. Pelvis: Stable nontender. Genitourinary: Deferred. Rectal: Deferred. Extremities: Atraumatic, and full range of motion of all extremities including the left wrist where there is no soft tissue swelling no ecchymosis and only minimal tenderness with certain movements and palpation. There is no distal hand or finger tenderness defects or deformities and no proximal forearm elbow or shoulder defects or deformities. There is no erythema and no joint swelling. The legs are negative for cords or calf pain. Neurovascular unremarkable. Neuro: Awake, alert, oriented. Cranial nerves II through XII unremarkable. Cerebellum unremarkable. Motor and sensory unremarkable throughout. Exam nonfocal. Diagnostics: X-ray left wrist Therapeutics: Velcro splint Impression: Left wrist pain acute on chronic Definitive disposition and diagnosis as appropriate pending reevaluation and review of above. L wrist Pain Score (Numeric/FACES): 8 - Related Data Allergies Allergy/AdvReac Type Severity Reaction Status Date / Time No Known Allergies Allergy Verified 04/15/19 22:08 Home Meds: Home Meds . [No Known Home Meds] 04/15/19 [History] Past Medical History - Past Health History Medical/Surgical History: Denies Medical/Surgical History HEENT History: Reports: None Cardiovascular History: Reports: None Respiratory History: Reports: Asthma Gastrointestinal History: Reports: Other (See Below) Other Gastrointestinal History: Crohns Genitourinary History: Reports: Renal Calculus, Other (See Below) Other Genitourinary History: PCOS [employer] History: Reports: Polycystic Ovaries Musculoskeletal History: Reports: None Neurological History: Reports: None Psychiatric History: Reports: Anxiety, Bipolar, Depression Endocrine/Metabolic History: Reports: None Hematologic History: Reports: Anemia Dermatologic History: Reports: None - Infectious Disease History Infectious Disease History: Reports: Chicken Pox - Past Surgical History HEENT Surgical History: Reports: Myringotomy w Tube(s), Tonsillectomy Respiratory Surgical History: Reports: None GI Surgical History: Reports: None Female Surgical History: Reports: None Social & Family History - Family History Family Medical History: Noncontributory - Tobacco Use Smoking Status *Q: Never Smoker Second Hand Smoke Exposure: No - Caffeine Use Caffeine Use: Reports: Coffee, Soda - Recreational Drug Use Recreational Drug Use: No Review of Systems - Review of Systems Review Of Systems: Comprehensive ROS is negative, except as noted in HPI. ED EXAM, GENERAL - Physical Exam Exam: See Below (See dictation) Course - Vital Signs Last Recorded V/S: Last Vital Signs Temp 36.8 C 04/15/19 22:03 Pulse 88 04/15/19 22:03 Resp 18 04/15/19 22:03 BP 131/60 04/15/19 22:03 Pulse Ox 98 04/15/19 22:03 - Orders/Labs/Meds Orders: Active Orders 24 hr Category Date Time Status Wrist Comp Min 3V Lt [CR] Stat Exams 02/03/20 21:51 Taken Departure - Departure Time of Disposition: 22:52 Disposition: Home, Self-Care 01 Condition: Good Clinical Impression: Left wrist pain - Discharge Information Referrals: PCP,None [Primary Care Provider] - Additional Instructions: The following information is given to patients seen in the emergency department who are being discharged to home. This information is to outline your options for follow-up care. We provide all patients seen in our emergency department with a follow-up referral. The need for follow-up, as well as the timing and circumstances, are variable depending upon the specifics of your emergency department visit. If you don't have a primary care physician on staff, we will provide you with a referral. We always advise you to contact your personal physician following an emergency department visit to inform them of the circumstance of the visit and for follow-up with them and/or the need for any referrals to a consulting specialist. The emergency department will also refer you to a specialist when appropriate. This referral assures that you have the opportunity for followup care with a specialist. All of these measure are taken in an effort to provide you with optimal care, which includes your followup. Under all circumstances we always encourage you to contact your private physician who remains a resource for coordinating your care. When calling for followup care, please make the office aware that this follow-up is from your recent emergency room visit. If for any reason you are refused follow-up, please contact the [facility] emergency department at and ask to speak to the emergency department charge nurse. [facility] Specialty Care - Orthopedic Clinic Professional Building [address] [place] [address], [address] [place] [address] Wear Velcro splint for comfort and try to reduce stressful activities on this area. Ice and elevate as much as possible and call and follow-up with orthopedics clinic for further evaluation and care. Return to ER as needed and as discussed Sepsis Event Note - Evaluation Sepsis Screening Result: No Definite Risk - Focused Exam Vital Signs: Vital Signs Temp Pulse Resp BP Pulse Ox 04/15/19 22:03 36.8 C 88 18 131/60 98 Date Exam was Performed: 04/15/19 Time Exam was Performed: 22:50 - My Orders Last 24 Hours: My Active Orders 04/15/19 21:51 Wrist Comp Min 3V Lt [CR] Stat - Assessment/Plan Last 24 Hours: My Active Orders 04/15/19 21:51 Wrist Comp Min 3V Lt [CR] Stat
--- NOTE | 2019-04-15 22:57 | CR ---
INDICATION: Left wrist pain. COMPARISON: None. FINDINGS/IMPRESSION: Left wrist, three views. 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 No fracture or other acute findings. Unremarkable soft tissues. Dictated by Jf Barker MD @ 04/15/2019 10:53:19 PM Dictated by: Jf Barker MD @ 04/15/2019 22:56:21 (Electronically Signed)
== END 2019-04-15 23:04 | disposition home or self-care (01) ==
LOC: MW.ED 21:48
DX: M25.532 Pain in left wrist (principal); G89.29 Other chronic pain
CPT/HCPCS: 73110-26-LT; 73110-LT; 99283; 99283-25

== ENCOUNTER 2019-07-03 18:30 | Emergency (ER) | payer BC, OTHER ==
[2019-07-03] MEDS ORDERED: Sodium Chloride 0.9% 1,000 ML IV ONE (19:48)
--- NOTE | 2019-07-03 19:52 | EDM.PDOC ---
ED HPI GENERAL MEDICAL PROBLEM - General Chief Complaint: Headache Stated Complaint: MIGRAINE Time Seen by Provider: 07/03/19 18:32 Source of Information: Reports: Patient History Limitations: Reports: No Limitations - History of Present Illness INITIAL COMMENTS - FREE TEXT/NARRATIVE: HISTORY AND PHYSICAL: History of present illness: Patient is a 18-year-old female who presents to the ED today with concern of a migraine that is been ongoing for the past 5 days. Patient states she does have a history of migraines and has been on medications for them in the past but states that she had side effects from the medication so has not been on them for several years. Patient states that over the last 5 days she has had a migraine and states that it is throbbing in nature and she does have some nausea and photophobia. Patient states that her symptoms with today are typical of her usual migraines. Patient denies any head injury or trauma. Patient denies any other symptoms or concerns. Patient denies fever, chills, chest pain, shortness of breath, or cough. Denies neck stiff ness, change in vision, syncope, or near syncope. Denies nausea, vomiting, abdominal pain, diarrhea, constipation, or dysuria. Has not noted any blood in urine or stool. Patient has been eating and drinking appropriately. Review of systems: As per history of present illness and below otherwise all systems reviewed and negative. Past medical history: As per history of present illness and as reviewed below otherwise noncontributory. Surgical history: As per history of present illness and as reviewed below otherwise noncontributory. Social history: See social history for further information Family history: As per history of present illness and as reviewed below otherwise noncontributory. Physical exam: General: Patient is alert, oriented, and in no acute distress. Patient sitting comfortably on exam table. HEENT: Atraumatic, normocephalic, pupils equal and reactive bilaterally, negative for conjunctival pallor or scleral icterus, mucous membranes moist, TMs normal bilaterally, throat clear, neck supple, nontender, trachea midline. No drooling or trismus noted. No meningeal signs. No hot potato voice noted. Lungs: Clear to auscultation, breath sounds equal bilaterally, chest nontender. Heart: S1S2, regular rate and rhythm without overt murmur Abdomen: Soft, nondistended, nontender. Negative for masses or hepatosplenomegaly. Negative for costovertebral tenderness. Pelvis: Stable nontender. Genitourinary: Deferred. Rectal: Deferred. Skin: Intact, warm, dry. No lesions or rashes noted. Extremities: Atraumatic, negative for cords or calf pain. Neurovascular unremarkable. Neuro: Awake, alert, oriented. Cranial nerves II through XII unremarkable. Cerebellum unremarkable. Motor and sensory unremarkable throughout. Exam nonfocal. Notes: Patient states she does have a h/o anemia and has not had this checked in quite some time and is worried it could be triggering her migrane today. Will check a CBC. Hgb today is 10.5. Compared to past visits on file, this is typical/normal for patients hgb level. Patient expresses improvement of symptoms today in the ED. Discussed importance for follow-up with a primary care provider. Voices understanding and is agreeable to plan of care. Denies any further questions or concerns at this time. Diagnostics: Urine hCG, CBC Therapeutics: Saline, Zofran, Toradol, Reglan, Benadryl Prescription: None Impression: Migraine, improved Anemia Plan: 1. Encourage small but frequent sips of fluid to prevent dehydration. 2. You can alternate ibuprofen and Tylenol as directed for pain and discomfort. 3. Follow-up with a primary care provider as discussed. Return to the ED as needed and as discussed. Definitive disposition and diagnosis as appropriate pending reevaluation and review of above. headache Pain Score (Numeric/FACES): 8 - Related Data Allergies Allergy/AdvReac Type Severity Reaction Status Date / Time No Known Allergies Allergy Verified 07/03/19 19:14 Home Meds: Home Meds . [No Known Home Meds] 04/15/19 [History] Past Medical History - Past Health History Medical/Surgical History: Denies Medical/Surgical History HEENT History: Reports: None Cardiovascular History: Reports: None Respiratory History: Reports: Asthma Gastrointestinal History: Reports: Other (See Below) Other Gastrointestinal History: Crohns Genitourinary History: Reports: Renal Calculus, Other (See Below) Other Genitourinary History: PCOS [employer] History: Reports: Polycystic Ovaries Musculoskeletal History: Reports: None Neurological History: Reports: None Psychiatric History: Reports: Anxiety, Bipolar, Depression Endocrine/Metabolic History: Reports: None Hematologic History: Reports: Anemia Dermatologic History: Reports: None - Infectious Disease History Infectious Disease History: Reports: Chicken Pox - Past Surgical History HEENT Surgical History: Reports: Myringotomy w Tube(s), Tonsillectomy Respiratory Surgical History: Reports: None GI Surgical History: Reports: None Female Surgical History: Reports: None Social & Family History - Family History Family Medical History: Noncontributory - Caffeine Use Caffeine Use: Reports: Coffee, Soda ED ROS GENERAL - Review of Systems Review Of Systems: Comprehensive ROS is negative, except as noted in HPI. ED EXAM, GENERAL - Physical Exam Exam: See Below (see dictation) Course - Vital Signs Last Recorded V/S: Last Vital Signs Temp 97.4 F 07/03/19 19:13 Pulse 83 07/03/19 19:13 Resp 18 07/03/19 19:13 BP 122/77 07/03/19 19:13 Pulse Ox 99 07/03/19 19:13 - Orders/Labs/Meds Labs: Laboratory Tests 07/03/19 07/03/19 Range/Units 20:11 21:27 WBC 4.01 (4.0-11.0) K/uL RBC 3.93 L (4.30-5.90) M/uL Hgb 10.5 L (12.0-16.0) g/dL Hct 32.9 L (36.0-46.0) % MCV 83.7 (80.0-98.0) fL MCH 26.7 L (27.0-32.0) pg MCHC 31.9 (31.0-37.0) g/dL RDW Std Deviation 43.0 (28.0-62.0) fl RDW Coeff of Eugenia 14 (11.0-15.0) % Plt Count 200 (150-400) K/uL MPV 10.40 (7.40-12.00) fL Neut % (Auto) 57.7 (48.0-80.0) % Lymph % (Auto) 29.9 (16.0-40.0) % Routt % (Auto) 10.2 (0.0-15.0) % Eos % (Auto) 1.7 (0.0-7.0) % Baso % (Auto) 0.5 (0.0-1.5) % Neut # (Auto) 2.3 (1.4-5.7) K/uL Lymph # (Auto) 1.2 (0.6-2.4) K/uL Routt # (Auto) 0.4 (0.0-0.8) K/uL Eos # (Auto) 0.1 (0.0-0.7) K/uL Baso # (Auto) 0.0 (0.0-0.1) K/uL Nucleated RBC % 0.0 /100WBC Nucleated RBCs # 0 K/uL Urine HCG, Qual NEGATIVE (NEGATIVE) Meds: Medications Discontinued Medications Generic Name Dose Route Start Last Admin Trade Name Freq PRN Reason Stop Dose Admin Diphenhydramine HCl 50 mg 07/03/19 20:35 07/03/19 20:55 Benadryl IVPUSH 07/03/19 20:36 50 mg ONETIME ONE Administration Sodium Chloride 1,000 mls @ 999 mls/hr 07/03/19 19:48 07/03/19 20:55 Normal Saline IV 07/03/19 20:48 999 mls/hr STAT ONE Administration Ketorolac Tromethamine 30 mg 07/03/19 20:35 07/03/19 20:55 Toradol IVPUSH 07/03/19 20:36 30 mg ONETIME ONE Administration Metoclopramide HCl 10 mg 07/03/19 20:35 07/03/19 20:55 Reglan IV 07/03/19 20:36 10 mg ONETIME ONE Administration Ondansetron HCl 4 mg 07/03/19 20:35 07/03/19 20:55 Zofran IVPUSH 07/03/19 20:36 4 mg ONETIME ONE Administration Departure - Departure Time of Disposition: 21:35 Disposition: Home, Self-Care 01 Clinical Impression: Migraine Anemia Qualifiers: Anemia type: unspecified type Qualified Code(s): D64.9 - Anemia, unspecified - Discharge Information Referrals: PCP,None [Primary Care Provider] - Forms: ED Department Discharge Additional Instructions: The following information is given to patients seen in the emergency department who are being discharged to home. This information is to outline your options for follow-up care. We provide all patients seen in our emergency department with a follow-up referral. The need for follow-up, as well as the timing and circumstances, are variable depending upon the specifics of your emergency department visit. If you don't have a primary care physician on staff, we will provide you with a referral. We always advise you to contact your personal physician following an emergency department visit to inform them of the circumstance of the visit and for follow-up with them and/or the need for any referrals to a consulting specialist. The emergency department will also refer you to a specialist when appropriate. This referral assures that you have the opportunity for follow-up care with a specialist. All of these measure are taken in an effort to provide you with optimal care, which includes your follow-up. Under all circumstances we always encourage you to contact your private physician who remains a resource for coordinating your care. When calling for follow-up care, please make the office aware that this follow-up is from your recent emergency room visit. If for any reason you are refused follow-up, please contact the [facility] Emergency Department at and asked to speak to the emergency department charge nurse. [facility] [address] [place] [address] [address] [address] [address] 1. Encourage small but frequent sips of fluid to prevent dehydration. 2. You can alternate ibuprofen and Tylenol as directed for pain and discomfort. 3. Follow-up with a primary care provider as discussed. Return to the ED as needed and as discussed. Sepsis Event Note - Evaluation Sepsis Screening Result: No Definite Risk - Focused Exam Vital Signs: Vital Signs Temp Pulse Resp BP Pulse Ox 07/03/19 19:13 97.4 F 83 18 122/77 99 Date Exam was Performed: 07/03/19 Time Exam was Performed: 21:34
[2019-07-03] MEDS ORDERED: Ondansetron 4 MG/2 ML SDV IVPUSH ONE (20:35)
[2019-07-03] MEDS ORDERED: diphenhydrAMINE 50 MG/ML SDV IVPUSH ONE (20:35)
[2019-07-03] MEDS ORDERED: Metoclopramide 10 MG/2 ML SDV IV ONE (20:35)
[2019-07-03] MEDS ORDERED: Ketorolac 30 MG/ML SDV IVPUSH ONE (20:35)
== END 2019-07-03 21:54 | disposition home or self-care (01) ==
LOC: MW.ED 18:30
DX: G43.909 Migraine, unspecified, not intractable, without status migrainosus (principal); D64.9 Anemia, unspecified; J45.909 Unspecified asthma, uncomplicated
CPT/HCPCS: 36415; 81025; 85025; 96374; 96375; 99283; J1200; J1885; J2405; J2765; J7030

== ENCOUNTER 2019-08-17 14:41 | Emergency (ER) | payer SELFPAY ==
[2019-08-17] MEDS ORDERED: Sodium Chloride 0.9% 1,000 ML IV ONE (15:03)
--- NOTE | 2019-08-17 15:12 | EDM.PDOC ---
ED HPI GENERAL MEDICAL PROBLEM - General Chief Complaint: General Stated Complaint: CHEST PAIN, TINGLING TOES AND FINGERS Time Seen by Provider: 08/17/19 14:59 Source of Information: Reports: Patient History Limitations: Reports: No Limitations - History of Present Illness INITIAL COMMENTS - FREE TEXT/NARRATIVE: HISTORY AND PHYSICAL: History of present illness: Patient is a 18-year-old female who presents to the emergency room with multiple various complaints that have been intermittent over the past 2 weeks. She has noticed she will have intermittent episodes of chest pain and feel like she can't take in deep breathes. This last anywhere from a few seconds to a few minutes, nothing makes the pain or breathing better or worse. She will have the sensation of flushed feeling to her face with brief tingling sensation to face, bilateral hands and bilateral feet. She has not had any history of anxiety nor feels that this is anxiety related. Denies any weakness, change in vision, slurred speech, confusion or headache. She also has noticed a small sore to the back of her throat for the past 1 week. She has noticed small little red rash to bilateral lower extremities, denies any new exposures, products or tick/insect bites. And lastly she feels fatigued and really "rundown". Patient denies any fever, neck pain/stiffness, arthralgias, syncope or near syncope. Denies any back pain, cough, abdominal pain, nausea, vomiting, diarrhea, constipation or dysuria. Has not noted any blood in urine or stool. Patient has been eating and drinking appropriately. Review of systems: As per history of present illness and below otherwise all systems reviewed and negative. Past medical history: As per history of present illness and as reviewed below otherwise noncontributory. Surgical history: As per history of present illness and as reviewed below otherwise noncontributory. Social history: See social history for further information Family history: As per history of present illness and as reviewed below otherwise noncontributory. Physical exam: General: Well-developed and well-nourished 18-year-old female. Alert and oriented. Nontoxic-appearing and in no acute distress. HEENT: Atraumatic, normocephalic, pupils equal and reactive bilaterally, negative for conjunctival pallor or scleral icterus, mucous membranes moist, TMs normal bilaterally, throat erythematous with a small circular ulcer noted to the roof of her left upper palate, neck supple, nontender, trachea midline. No drooling or trismus noted. No meningeal signs. No hot potato voice noted. Lungs: Clear to auscultation, breath sounds equal bilaterally, chest nontender. Breathes easily and even. Speaks in full sentences without shortness or breath. Heart: S1S2, regular rate and rhythm without overt murmur Abdomen: Soft, nondistended, nontender. Negative for masses or hepatosplenomegaly. Negative for costovertebral tenderness. Pelvis: Stable nontender. Skin: Patient does have small pinpoint reddened areas to the bilateral ankles, nonspecific and nontoxic in appearance -possibly a contact dermatitis. Otherwise remaining skin intact, warm, dry. No lesions or other rashes noted. Extremities: Atraumatic, moves all extremities per self without difficulty or deficits, negative for cords or calf pain. Neurovascular unremarkable. Neuro: Awake, alert, oriented. Cranial nerves II through XII unremarkable. Cerebellum unremarkable. Motor and sensory unremarkable throughout. Exam nonfocal. Notes: EKG shows rate of 73, normal sinus rhythm, no acute or concerning findings. Chest x-ray shows no acute findings. Lab work is unremarkable with exception of UTI. Since the patient has been having some respiratory symptoms intermittently over the past few weeks I will treat her atypically with steroid. Patient states she feels improved after the IV fluids. Her vital signs remained stable. She is nontoxic in appearance and is suitable for discharge to home. We discussed signs and symptoms that would prompt her to return to the emergency room. I would like her to follow-up with her primary care provider next week for reevaluation. Medication and supportive care measures were reviewed and discussed. Voices understanding and is agreeable to plan of care. Denies any further questions or concerns at this time. Diagnostics: CBC, CMP, UA, HCGU, [place], Strep, EKG Therapeutics: IV fluids Prescription: Macrobid and prednisone Impression: Oral ulcer URI Nonspecific rash UTI Plan: 1. CBC (checks your hemoglobin and if you have infection), CMP (electrolytes, liver, kidney function), mono, strep, chest x-ray, EKG are all within normal limits. You do have a urinary tract infection. Due to the longevity of your respiratory symptoms same been a treat you with a Z-Reuben and Medrol Dosepak for upper respiratory illness. Please increase your oral fluids and get plenty of rest. 2. You can alternate Tylenol and ibuprofen as needed for pain management. 3. I would like you to follow-up with your primary care provider next week for reevaluation. If your symptoms should return, worsen or new symptoms develop return to the emergency department as we discussed. Definitive disposition and diagnosis as appropriate pending reevaluation and review of above. Duration: Week(s): - Related Data Allergies Allergy/AdvReac Type Severity Reaction Status Date / Time No Known Allergies Allergy Verified 08/17/19 14:55 Home Meds: Home Meds Nitrofurantoin Monohyd/M-Cryst [Macrobid 100 mg Capsule] 100 mg PO BID 5 Days # 10 capsule 08/17/19 [Rx] predniSONE [Prednisone] 40 mg PO DAILY 5 Days #10 tablet 08/17/19 [Rx] Past Medical History - Past Health History Medical/Surgical History: Denies Medical/Surgical History HEENT History: Reports: None Cardiovascular History: Reports: None Respiratory History: Reports: Asthma Gastrointestinal History: Reports: Other (See Below) Other Gastrointestinal History: Crohns Genitourinary History: Reports: Renal Calculus, Other (See Below) Other Genitourinary History: PCOS [employer]OR [employer] SCIENT[employer]EARCH History: Reports: Polycystic Ovaries Musculoskeletal History: Reports: None Other Musculoskeletal History: anklyosing spondylitis Neurological History: Reports: None Psychiatric History: Reports: Anxiety, Bipolar, Depression Endocrine/Metabolic History: Reports: None Hematologic History: Reports: Anemia Dermatologic History: Reports: None - Infectious Disease History Infectious Disease History: Reports: Chicken Pox - Past Surgical History HEENT Surgical History: Reports: Myringotomy w Tube(s), Tonsillectomy Respiratory Surgical History: Reports: None GI Surgical History: Reports: None Female Surgical History: Reports: None Social & Family History - Family History Family Medical History: Noncontributory Other Dermatologic Family History: Lupus - Tobacco Use Smoking Status *Q: Never Smoker Second Hand Smoke Exposure: No - Caffeine Use Caffeine Use: Reports: None - Recreational Drug Use Recreational Drug Use: No ED ROS GENERAL - Review of Systems Review Of Systems: Comprehensive ROS is negative, except as noted in HPI. ED EXAM, GENERAL - Physical Exam Exam: See Below (See dictation) Course - Vital Signs Last Recorded V/S: Last Vital Signs Temp 96.6 F L 08/17/19 14:53 Pulse 100 08/17/19 14:53 Resp 18 08/17/19 14:53 BP 133/77 08/17/19 14:53 Pulse Ox 98 08/17/19 14:53 - Orders/Labs/Meds Orders: Active Orders 24 hr Category Date Time Status EKG 12 Lead [EKG Documentation Completion] [RC] STAT Care 08/17/19 14:49 Active CULTURE STREP A CONFIRMATION [] Stat Lab 08/17/19 15:10 Results CULTURE URINE [] Stat Lab 08/17/19 15:06 Received STREP SCRN A RAPID W CULT CONF [] Stat Lab 08/17/19 15:10 Results Labs: Laboratory Tests 08/17/19 08/17/19 08/17/19 Range/Units 15:06 15:06 15:17 WBC 6.68 (4.0-11.0) K/uL RBC 4.37 (4.30-5.90) M/uL Hgb 11.7 L (12.0-16.0) g/dL Hct 36.7 (36.0-46.0) % MCV 84.0 (80.0-98.0) fL MCH 26.8 L (27.0-32.0) pg MCHC 31.9 (31.0-37.0) g/dL RDW Std Deviation 41.5 (28.0-62.0) fl RDW Coeff of Eugenia 14 (11.0-15.0) % Plt Count 270 (150-400) K/uL MPV 11.00 (7.40-12.00) fL Neut % (Auto) 65.6 (48.0-80.0) % Lymph % (Auto) 27.2 (16.0-40.0) % [place] % (Auto) 6.6 (0.0-15.0) % Eos % (Auto) 0.3 (0.0-7.0) % Baso % (Auto) 0.3 (0.0-1.5) % Neut # (Auto) 4.4 (1.4-5.7) K/uL Lymph # (Auto) 1.8 (0.6-2.4) K/uL [place] # (Auto) 0.4 (0.0-0.8) K/uL Eos # (Auto) 0.0 (0.0-0.7) K/uL Baso # (Auto) 0.0 (0.0-0.1) K/uL Nucleated RBC % 0.0 /100WBC Nucleated RBCs # 0 K/uL Sodium (136-145) mmol/L Potassium (3.5-5.1) mmol/L Chloride (98-107) mmol/L Carbon Dioxide (21.0-32.0) mmol/L BUN (7.0-18.0) mg/dL Creatinine (0.6-1.0) mg/dL Est Cr Clr Drug Dosing mL/min Estimated GFR (MDRD) ml/min Glucose (74-106) mg/dL Calcium (8.5-10.1) mg/dL Total Bilirubin (0.2-1.0) mg/dL AST (15-37) IU/L ALT (14-63) IU/L Alkaline Phosphatase (46-116) U/L Total Protein (6.4-8.2) g/dL Albumin (3.4-5.0) g/dL Globulin (2.6-4.0) g/dL Albumin/Globulin Ratio (0.9-1.6) Urine Color YELLOW Urine Appearance SLT CLOUDY Urine pH 5.5 (5.0-8.0) Ur Specific [place] >= 1.030 (1.001-1.035) Urine Protein NEGATIVE (NEGATIVE) mg/dL Urine Glucose (UA) NEGATIVE (NEGATIVE) mg/dL Urine Ketones NEGATIVE (NEGATIVE) mg/dL Urine Occult Blood NEGATIVE (NEGATIVE) Urine Nitrite NEGATIVE (NEGATIVE) Urine Bilirubin NEGATIVE (NEGATIVE) Urine Urobilinogen 0.2 (<2.0) EU/dL Ur Leukocyte Esterase SMALL H (NEGATIVE) Urine RBC 0-1 (0-2/HPF) Urine WBC 5-10 (0-5/HPF) Ur Epithelial Cells FEW (NONE-FEW) Amorphous Sediment MODERATE (NEGATIVE) Urine Bacteria FEW (NEGATIVE) Urine HCG, Qual NEGATIVE (NEGATIVE) Monoscreen (NEG) 08/17/19 08/17/19 Range/Units 15:17 15:17 WBC (4.0-11.0) K/uL RBC (4.30-5.90) M/uL Hgb (12.0-16.0) g/dL Hct (36.0-46.0) % MCV (80.0-98.0) fL MCH (27.0-32.0) pg MCHC (31.0-37.0) g/dL RDW Std Deviation (28.0-62.0) fl RDW Coeff of Eugenia (11.0-15.0) % Plt Count (150-400) K/uL MPV (7.40-12.00) fL Neut % (Auto) (48.0-80.0) % Lymph % (Auto) (16.0-40.0) % [place] % (Auto) (0.0-15.0) % Eos % (Auto) (0.0-7.0) % Baso % (Auto) (0.0-1.5) % Neut # (Auto) (1.4-5.7) K/uL Lymph # (Auto) (0.6-2.4) K/uL [place] # (Auto) (0.0-0.8) K/uL Eos # (Auto) (0.0-0.7) K/uL Baso # (Auto) (0.0-0.1) K/uL Nucleated RBC % /100WBC Nucleated RBCs # K/uL Sodium 142 (136-145) mmol/L Potassium 3.8 (3.5-5.1) mmol/L Chloride 106 (98-107) mmol/L Carbon Dioxide 26.2 (21.0-32.0) mmol/L BUN 12 (7.0-18.0) mg/dL Creatinine 0.8 (0.6-1.0) mg/dL Est Cr Clr Drug Dosing 109.08 mL/min Estimated GFR (MDRD) > 60.0 ml/min Glucose 76 (74-106) mg/dL Calcium 8.7 (8.5-10.1) mg/dL Total Bilirubin 0.6 (0.2-1.0) mg/dL AST 17 (15-37) IU/L ALT 20 (14-63) IU/L Alkaline Phosphatase 69 (46-116) U/L Total Protein 7.3 (6.4-8.2) g/dL Albumin 3.8 (3.4-5.0) g/dL Globulin 3.5 (2.6-4.0) g/dL Albumin/Globulin Ratio 1.1 (0.9-1.6) Urine Color Urine Appearance Urine pH (5.0-8.0) Ur Specific [place] (1.001-1.035) Urine Protein (NEGATIVE) mg/dL Urine Glucose (UA) (NEGATIVE) mg/dL Urine Ketones (NEGATIVE) mg/dL Urine Occult Blood (NEGATIVE) Urine Nitrite (NEGATIVE) Urine Bilirubin (NEGATIVE) Urine Urobilinogen (<2.0) EU/dL Ur Leukocyte Esterase (NEGATIVE) Urine RBC (0-2/HPF) Urine WBC (0-5/HPF) Ur Epithelial Cells (NONE-FEW) Amorphous Sediment (NEGATIVE) Urine Bacteria (NEGATIVE) Urine HCG, Qual (NEGATIVE) Monoscreen NEGATIVE (NEG) Meds: Medications Discontinued Medications Generic Name Dose Route Start Last Admin Trade Name Freq PRN Reason Stop Dose Admin Sodium Chloride 1,000 mls @ 999 mls/hr 08/17/19 15:03 08/17/19 15:23 Normal Saline IV 08/17/19 16:03 999 mls/hr STAT ONE Administration Departure - Departure Time of Disposition: 16:48 Disposition: Home, Self-Care 01 Clinical Impression: Oral ulcer, Viral upper respiratory illness, Rash UTI (urinary tract infection) Qualifiers: Urinary tract infection type: acute cystitis Hematuria presence: with hematuria Qualified Code(s): N30.01 - Acute cystitis with hematuria - Discharge Information Prescriptions: Azithromycin [Zithromax] 1 dose PO DAILY 5 Days #6 tab predniSONE [Prednisone] 40 mg PO DAILY 5 Days #10 tablet Instructions: Upper Respiratory Infection, Adult, [id number], Urinary Tract Infection, Adult, [id number] Referrals: PCP,None [Primary Care Provider] - Forms: ED Department Discharge Additional Instructions: The following information is given to patients seen in the emergency department who are being discharged to home. This information is to outline your options for follow-up care. We provide all patients seen in our emergency department with a follow-up referral. The need for follow-up, as well as the timing and circumstances, are variable depending upon the specifics of your emergency department visit. If you don't have a primary care physician on staff, we will provide you with a referral. We always advise you to contact your personal physician following an emergency department visit to inform them of the circumstance of the visit and for follow-up with them and/or the need for any referrals to a consulting specialist. The emergency department will also refer you to a specialist when appropriate. This referral assures that you have the opportunity for follow-up care with a specialist. All of these measure are taken in an effort to provide you with optimal care, which includes your follow-up. Under all circumstances we always encourage you to contact your private physician who remains a resource for coordinating your care. When calling for follow-up care, please make the office aware that this follow-up is from your recent emergency room visit. If for any reason you are refused follow-up, please contact the [facility] at and asked to speak to the emergency department charge nurse. [facility] [address] [place] [id number] [place] [address] 1. CBC (checks your hemoglobin and if you have infection), CMP (electrolytes, liver, kidney function), mono, strep, chest x-ray, EKG are all within normal limits. You do have a urinary tract infection. Due to the longevity of your respiratory symptoms same been a treat you with a steroids and antibiotics for upper respiratory illness. Please increase your oral fluids and get plenty of rest. 2. You can alternate Tylenol and ibuprofen as needed for pain management. 3. I would like you to follow-up with your primary care provider next week for reevaluation. If your symptoms should return, worsen or new symptoms develop return to the emergency department as we discussed. Sepsis Event Note - Evaluation Sepsis Screening Result: No Definite Risk - Focused Exam Vital Signs: Vital Signs Temp Pulse Resp BP Pulse Ox 08/17/19 14:53 96.6 F L 100 18 133/77 98 Date Exam was Performed: 08/17/19 Time Exam was Performed: 16:47 - My Orders Last 24 Hours: My Active Orders 08/17/19 15:06 CULTURE URINE [RM] Stat 08/17/19 15:10 CULTURE STREP A CONFIRMATION [RM] Stat STREP SCRN A RAPID W CULT CONF [RM] Stat - Assessment/Plan Last 24 Hours: My Active Orders 08/17/19 15:06 CULTURE URINE [RM] Stat 08/17/19 15:10 CULTURE STREP A CONFIRMATION [RM] Stat STREP SCRN A RAPID W CULT CONF [RM] Stat
[2019-08-17 15:47] LABS: BLOOD UREA NITROGEN,BUN 12 mg/dL (7.0-18.0); CARBON DIOXIDE,CO2 26.2 mmol/L (21.0-32.0); CHLORIDE,CL 106 mmol/L (98-107); GLUCOSE RANDOM 76 mg/dL (74-106); POTASSIUM,K 3.8 mmol/L (3.5-5.1); SODIUM,NA 142 mmol/L (136-145)
--- NOTE | 2019-08-17 16:08 | CR ---
Chest: Portable view of the chest was obtained. Comparison: No prior chest imaging is available. Heart size and mediastinum are normal. Lungs are clear. Bony structures are grossly intact. Impression: 1. Nothing acute is appreciated on portable chest x-ray. Diagnostic code #1 This report was dictated in MDT
== END 2019-08-17 17:00 | disposition home or self-care (01) ==
LOC: MW.ED 14:41
DX: J06.9 Acute upper respiratory infection, unspecified (principal); N30.01 Acute cystitis with hematuria; K12.1 Other forms of stomatitis; R21 Rash and other nonspecific skin eruption; Z79.899 Other long term (current) drug therapy
CPT/HCPCS: 71045; 80053; 81001; 81025; 85025; 86308; 87081; 87086; 87880; 93005; 99285; J7030; 99283

== ENCOUNTER 2019-10-13 11:12 | Emergency (ER) | payer BC, MEDICAID ==
--- NOTE | 2019-10-13 11:29 | EDM.PDOC ---
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 She states 2 days ago she started having heavy vaginal bleeding after intercourse. The following day the bleeding had improved and now just has light spotting, dark brown in color. She also has some low abdominal cramping. Last menstrual period was July 2019. 1 para 0, sees Dr. Cheng at [facility]. Patient denies any fever, chills, headache, change in vision, syncope or near syncope. Denies any chest pain, back pain, shortness of breath or cough. Denies any nausea, vomiting, diarrhea, constipation or dysuria. Patient has been eating and drinking appropriately. Review of systems: As per history of present illness and below otherwise all systems reviewed and negative. Past medical history: As per history of present illness and as reviewed below otherwise noncontributory. Surgical history: As per history of present illness and as reviewed below otherwise noncontributory. Social history: See social history for further information Family history: As per history of present illness and as reviewed below otherwise noncontri butory. Physical exam: General: Well-developed and well-nourished 18-year-old female. Alert and oriented. Nontoxic-appearing and in no acute distress. Vital signs are stable and have been reviewed by me. HEENT: Atraumatic, normocephalic, pupils equal and reactive bilaterally, negative for conjunctival pallor or scleral icterus, mucous membranes moist, TMs normal bilaterally, throat clear, neck supple, nontender, trachea midline. No drooling or trismus noted. No meningeal signs. No hot potato voice noted. Lungs: Clear to auscultation, breath sounds equal bilaterally, chest nontender. Heart: S1S2, regular rate and rhythm without overt murmur Abdomen: Soft, nondistended, nontender. Negative for masses or hepatosplenomegaly. Negative for costovertebral tenderness. Pelvis: Stable nontender. Genitourinary: This was done with consent and a analytical research program manager at bedside. Cervical os is closed and no bleeding is noted. Patient tolerated well. Skin: Intact, warm, dry. No lesions or rashes noted. Extremities: Atraumatic, moves all extremities per self without difficulty or deficits, negative for cords or calf pain. Neurovascular unremarkable. Neuro: Awake, alert, oriented. Cranial nerves II through XII unremarkable. Cerebellum unremarkable. Motor and sensory unremarkable throughout. Exam nonfocal. Notes: Lab work unremarkable. Patient is a O positive. Urine culture has been added. Ultrasound shows a single IUP measuring 10 weeks and 6 days with a heart rate of 170. Cervix is closed, no free fluid is seen. No subchorionic hemorrhage [place] [id number]. We discussed the need for follow-up with DIRECTOR BANKING on Monday. We discussed signs and symptoms that would prompt him to return to the emergency room. Supportive care measures were reviewed and discussed. Voices understanding and is agreeable to plan of care. Denies any further questions or concerns at this time. Diagnostics: CBC, CMP, UA, quantitative hCG, ABO/Rh, OB ultrasound Therapeutics: None Prescription: None Impression: Threatened Miscarriage Plan: 1. Please start and/or continue to take your vitamin with folic acid once daily. 2. Pelvic rest until cleared by your OBGYN (no tampons, sex, etc...) 3. Tylenol as needed for pain management. 4. Follow up with her DIRECTOR BANKING, call Monday for expedite follow up. If your symptoms should worsen, new symptoms develop or any of the signs and symptoms we discussed should arise please return to the emergency room or call 911 (if needed). Definitive disposition and diagnosis as appropriate pending reevaluation and review of above. lower abdomen Pain Score (Numeric/FACES): 7 - Related Data Allergies Allergy/AdvReac Type Severity Reaction Status Date / Time No Known Allergies Allergy Verified 10/13/19 11:25 Home Meds: Home Meds Docosahexaenoic Acid [ Dha] 1 tab PO DAILY 10/13/19 [History] Past Medical History - Past Health History Medical/Surgical History: Denies Medical/Surgical History HEENT History: Reports: None Cardiovascular History: Reports: None Respiratory History: Reports: Asthma Gastrointestinal History: Reports: Other (See Below) Other Gastrointestinal History: Crohns Genitourinary History: Reports: Renal Calculus, Other (See Below) Other Genitourinary History: PCOS DIRECTOR BANKING History: Reports: Polycystic Ovaries Musculoskeletal History: Reports: None Other Musculoskeletal History: anklyosing spondylitis Neurological History: Reports: None Psychiatric History: Reports: Anxiety, Bipolar, Depression Endocrine/Metabolic History: Reports: None Hematologic History: Reports: Anemia Dermatologic History: Reports: None - Infectious Disease History Infectious Disease History: Reports: None - Past Surgical History HEENT Surgical History: Reports: Myringotomy w Tube(s), Tonsillectomy Respiratory Surgical History: Reports: None GI Surgical History: Reports: None Female Surgical History: Reports: None Social & Family History - Family History Family Medical History: Noncontributory Other Dermatologic Family History: Lupus - Tobacco Use Smoking Status *Q: Never Smoker Second Hand Smoke Exposure: No - Caffeine Use Caffeine Use: Reports: Soda - Recreational Drug Use Recreational Drug Use: No ED ROS GENERAL - Review of Systems Review Of Systems: Comprehensive ROS is negative, except as noted in HPI. ED EXAM - Physical Exam Exam: See Below (See dictation) Course - Vital Signs Last Recorded V/S: Last Vital Signs Temp 96.9 F 10/13/19 11:21 Pulse 81 10/13/19 11:21 Resp 18 10/13/19 11:21 BP 120/67 10/13/19 11:21 Pulse Ox 98 10/13/19 11:21 - Orders/Labs/Meds Orders: Active Orders 24 hr Category Date Time Status CULTURE URINE [RM] Stat Lab 10/13/19 11:20 Received Labs: Laboratory Tests 10/13/19 10/13/19 10/13/19 Range/Units 11:20 11:38 11:38 WBC 6.12 (4.0-11.0) K/uL RBC 4.11 L (4.30-5.90) M/uL Hgb 11.4 L (12.0-16.0) g/dL Hct 34.9 L (36.0-46.0) % MCV 84.9 (80.0-98.0) fL MCH 27.7 (27.0-32.0) pg MCHC 32.7 (31.0-37.0) g/dL RDW Std Deviation 40.9 (28.0-62.0) fl RDW Coeff of Eugenia 13 (11.0-15.0) % Plt Count 210 (150-400) K/uL MPV 10.80 (7.40-12.00) fL Neut % (Auto) 67.9 (48.0-80.0) % Lymph % (Auto) 25.8 (16.0-40.0) % Luna % (Auto) 5.4 (0.0-15.0) % Eos % (Auto) 0.7 (0.0-7.0) % Baso % (Auto) 0.2 (0.0-1.5) % Neut # (Auto) 4.2 (1.4-5.7) K/uL Lymph # (Auto) 1.6 (0.6-2.4) K/uL Luna # (Auto) 0.3 (0.0-0.8) K/uL Eos # (Auto) 0.0 (0.0-0.7) K/uL Baso # (Auto) 0.0 (0.0-0.1) K/uL Nucleated RBC % 0.0 /100WBC Nucleated RBCs # 0 K/uL Sodium 136 (136-145) mmol/L Potassium 3.9 (3.5-5.1) mmol/L Chloride 103 (98-107) mmol/L Carbon Dioxide 24.9 (21.0-32.0) mmol/L BUN 9 (7.0-18.0) mg/dL Creatinine 0.8 (0.6-1.0) mg/dL Est Cr Clr Drug Dosing 109.08 mL/min Estimated GFR (MDRD) > 60.0 ml/min Glucose 79 (74-106) mg/dL Calcium 8.3 L (8.5-10.1) mg/dL Total Bilirubin 0.5 (0.2-1.0) mg/dL AST 13 L (15-37) IU/L ALT 17 (14-63) IU/L Alkaline Phosphatase 55 (46-116) U/L Total Protein 7.2 (6.4-8.2) g/dL Albumin 3.4 (3.4-5.0) g/dL Globulin 3.8 (2.6-4.0) g/dL Albumin/Globulin Ratio 0.9 (0.9-1.6) HCG, Quant 78869.0 mIU/mL Urine Color YELLOW Urine Appearance HAZY Urine pH 6.0 (5.0-8.0) Ur Specific Gratis 1.025 (1.001-1.035) Urine Protein NEGATIVE (NEGATIVE) mg/dL Urine Glucose (UA) NEGATIVE (NEGATIVE) mg/dL Urine Ketones NEGATIVE (NEGATIVE) mg/dL Urine Occult Blood SMALL H (NEGATIVE) Urine Nitrite NEGATIVE (NEGATIVE) Urine Bilirubin NEGATIVE (NEGATIVE) Urine Urobilinogen 0.2 (<2.0) EU/dL Ur Leukocyte Esterase TRACE H (NEGATIVE) Urine RBC 2-5 (0-2/HPF) Urine WBC 0-4 (0-5/HPF) Ur Epithelial Cells RARE (NONE-FEW) Urine Bacteria FEW (NEGATIVE) Blood Type 10/13/19 Range/Units 11:38 WBC (4.0-11.0) K/uL RBC (4.30-5.90) M/uL Hgb (12.0-16.0) g/dL Hct (36.0-46.0) % MCV (80.0-98.0) fL MCH (27.0-32.0) pg MCHC (31.0-37.0) g/dL RDW Std Deviation (28.0-62.0) fl RDW Coeff of Eugenia (11.0-15.0) % Plt Count (150-400) K/uL MPV (7.40-12.00) fL Neut % (Auto) (48.0-80.0) % Lymph % (Auto) (16.0-40.0) % Luna % (Auto) (0.0-15.0) % Eos % (Auto) (0.0-7.0) % Baso % (Auto) (0.0-1.5) % Neut # (Auto) (1.4-5.7) K/uL Lymph # (Auto) (0.6-2.4) K/uL Luna # (Auto) (0.0-0.8) K/uL Eos # (Auto) (0.0-0.7) K/uL Baso # (Auto) (0.0-0.1) K/uL Nucleated RBC % /100WBC Nucleated RBCs # K/uL Sodium (136-145) mmol/L Potassium (3.5-5.1) mmol/L Chloride (98-107) mmol/L Carbon Dioxide (21.0-32.0) mmol/L BUN (7.0-18.0) mg/dL Creatinine (0.6-1.0) mg/dL Est Cr Clr Drug Dosing mL/min Estimated GFR (MDRD) ml/min Glucose (74-106) mg/dL Calcium (8.5-10.1) mg/dL Total Bilirubin (0.2-1.0) mg/dL AST (15-37) IU/L ALT (14-63) IU/L Alkaline Phosphatase (46-116) U/L Total Protein (6.4-8.2) g/dL Albumin (3.4-5.0) g/dL Globulin (2.6-4.0) g/dL Albumin/Globulin Ratio (0.9-1.6) HCG, Quant mIU/mL Urine Color Urine Appearance Urine pH (5.0-8.0) Ur Specific Gratis (1.001-1.035) Urine Protein (NEGATIVE) mg/dL Urine Glucose (UA) (NEGATIVE) mg/dL Urine Ketones (NEGATIVE) mg/dL Urine Occult Blood (NEGATIVE) Urine Nitrite (NEGATIVE) Urine Bilirubin (NEGATIVE) Urine Urobilinogen (<2.0) EU/dL Ur Leukocyte Esterase (NEGATIVE) Urine RBC (0-2/HPF) Urine WBC (0-5/HPF) Ur Epithelial Cells (NONE-FEW) Urine Bacteria (NEGATIVE) Blood Type O POSITIVE Departure - Departure Time of Disposition: 13:20 Disposition: Home, Self-Care 01 Clinical Impression: Threatened miscarriage - Discharge Information Instructions: Threatened Miscarriage, [id number] Referrals: Navi Cheng MD [Primary Care Provider] - Forms: ED Department Discharge Additional Instructions: The following information is given to patients seen in the emergency department who are being discharged to home. This information is to outline your options for follow-up care. We provide all patients seen in our emergency department with a follow-up referral. The need for follow-up, as well as the timing and circumstances, are variable depending upon the specifics of your emergency department visit. If you don't have a primary care physician on staff, we will provide you with a referral. We always advise you to contact your personal physician following an emergency department visit to inform them of the circumstance of the visit and for follow-up with them and/or the need for any referrals to a consulting specialist. The emergency department will also refer you to a specialist when appropriate. This referral assures that you have the opportunity for follow-up care with a specialist. All of these measure are taken in an effort to provide you with optimal care, which includes your follow-up. Under all circumstances we always encourage you to contact your private physician who remains a resource for coordinating your care. When calling for follow-up care, please make the office aware that this follow-up is from your recent emergency room visit. If for any reason you are refused follow-up, please contact the [facility] Emergency Department at and asked to speak to the emergency department charge nurse. [facility] [address] [place], [place] [id number] [place] [address] Thank you for choosing the [facility] emergency department in [place] for your medical needs today. It was a pleasure caring for you. You were seen in the emergency department for vaginal bleeding in . 1. Please start and/or continue to take your vitamin with folic acid once daily. 2. Pelvic rest until cleared by your OBGYN (no tampons, sex, etc...) 3. Tylenol as needed for pain management. 4. Follow up with her DIRECTOR BANKING, call Monday for expedite follow up. Dr Cheng may want to repeat your Quant HCG. If your symptoms should worsen, new symptoms develop or any of the signs and symptoms we discussed should arise please return to the emergency room or call 911 (if needed). Sepsis Event Note (ED) - Evaluation Sepsis Screening Result: No Definite Risk - Focused Exam Vital Signs: Vital Signs Temp Pulse Resp BP Pulse Ox 10/13/19 11:21 96.9 F 81 18 120/67 98 - My Orders Last 24 Hours: My Active Orders 10/13/19 11:20 CULTURE URINE [RM] Stat - Assessment/Plan Last 24 Hours: My Active Orders 10/13/19 11:20 CULTURE URINE [] Stat
[2019-10-13 12:36] LABS: BLOOD UREA NITROGEN,BUN 9 mg/dL (7.0-18.0); CARBON DIOXIDE,CO2 24.9 mmol/L (21.0-32.0); CHLORIDE,CL 103 mmol/L (98-107); GLUCOSE RANDOM 79 mg/dL (74-106); POTASSIUM,K 3.9 mmol/L (3.5-5.1); SODIUM,NA 136 mmol/L (136-145)
--- NOTE | 2019-10-13 13:12 | US ---
1st trimester obstetrical ultrasound: Multiple real-time images were obtained transvaginally. Comparison: No prior obstetrical imaging is available. Dates: Current ultrasound: GINO 05/04/20, gestational age 10 weeks 6 days Single intrauterine gestation is seen. Amniotic fluid volume is normal. No subchorionic hemorrhage is identified. Maternal ovaries appear within normal limits. No free fluid is seen. Measurements: Ruso-rump length: 4.02 cm - 10 weeks 6 days Heart rate: 170 BPM Cervical length: 3.3 cm, cervix is closed. Impression: 1. Single intrauterine gestation. Dates as noted above. 2. No etiology is identified for the patient's vaginal bleeding. Diagnostic code #1 This report was dictated in MDT
== END 2019-10-13 13:30 | disposition home or self-care (01) ==
LOC: MW.ED 11:12
DX: O20.0 Threatened abortion (principal); O99.511 Diseases of the respiratory system complicating pregnancy, first trimester; J45.909 Unspecified asthma, uncomplicated; Z3A.10 10 weeks gestation of pregnancy
CPT/HCPCS: 36415; 76801; 76801-26; 80053; 81001; 84702; 85025; 86900; 86901; 87086; 99282; 99284-25

== ENCOUNTER 2019-10-20 21:43 | Emergency (ER) | payer MEDICAID, OTHER ==
--- NOTE | 2019-10-20 22:36 | EDM.PDOC ---
ED HPI GENERAL MEDICAL PROBLEM - General Chief Complaint: Respiratory Problem Stated Complaint: FEVER,COUGH,POSSIBLE COVID POSTITIVE Time Seen by Provider: 10/20/19 21:48 - History of Present Illness INITIAL COMMENTS - FREE TEXT/NARRATIVE: 18F presents for concern for COVID. +subjective fevers, dry cough, chest tightness, diarrhea, body aches. Boyfriend with positive test a few days ago. Symptoms started today - Related Data Allergies Allergy/AdvReac Type Severity Reaction Status Date / Time No Known Allergies Allergy Verified 10/20/19 22:40 Home Meds: Home Meds Docosahexaenoic Acid [ Dha] 1 tab PO DAILY 10/13/19 [History] Past Medical History - Past Health History Medical/Surgical History: Denies Medical/Surgical History HEENT History: Reports: None Cardiovascular History: Reports: None Respiratory History: Reports: Asthma Gastrointestinal History: Reports: Other (See Below) Other Gastrointestinal History: Crohns Genitourinary History: Reports: Renal Calculus, Other (See Below) Other Genitourinary History: PCOS 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: Reports: Polycystic Ovaries Musculoskeletal History: Reports: None Other Musculoskeletal History: anklyosing spondylitis Neurological History: Reports: None Psychiatric History: Reports: Anxiety, Bipolar, Depression Endocrine/Metabolic History: Reports: None Hematologic History: Reports: Anemia Dermatologic History: Reports: None - Infectious Disease History Infectious Disease History: Reports: None - Past Surgical History HEENT Surgical History: Reports: Myringotomy w Tube(s), Tonsillectomy Respiratory Surgical History: Reports: None GI Surgical History: Reports: None Female Surgical History: Reports: None Social & Family History - Family History Family Medical History: Noncontributory Other Dermatologic Family History: Lupus - Caffeine Use Caffeine Use: Reports: Soda ED ROS GENERAL - Review of Systems Review Of Systems: Comprehensive ROS is negative, except as noted in HPI. ED EXAM, GENERAL - Physical Exam Exam: See Below Exam Limited By: No Limitations General Appearance: Alert, WD/WN, No Apparent Distress Head: Atraumatic, Normocephalic Neck: Normal Inspection Respiratory/Chest: No Respiratory Distress, Lungs Clear, Normal Breath Sounds, No Accessory Muscle Use Cardiovascular: Normal Peripheral Pulses, Tachycardia Neurological: Alert Psychiatric: Normal Affect, Normal Mood Skin Exam: Warm, Dry Course - Vital Signs Last Recorded V/S: Last Vital Signs Temp 98.7 F 10/20/19 22:37 Pulse 102 H 10/20/19 22:37 Resp 18 10/20/19 22:37 BP 128/78 10/20/19 22:37 Pulse Ox 99 10/20/19 22:37 - Orders/Labs/Meds Labs: Laboratory Tests 10/20/19 Range/Units 22:41 COVID-19 (DANIA) POSITIVE H (NEGATIVE) Meds: Medications Discontinued Medications Generic Name Dose Route Start Last Admin Trade Name Kaveh PRN Reason Stop Dose Admin Acetaminophen 1,000 mg 10/20/19 22:43 10/20/19 23:03 Tylenol Extra Strength PO 10/20/19 22:44 Not Given ONETIME ONE - Re-Assessments/Exams Free Text/Narrative Re-Assessment/Exam: 10/20/19 23:13 COVID testing positive, patient instructed to self isolate, use tylenol q4h for fever control, and return for any SOB or worsening chest pain. F/u with PMD and OBGYN. Departure - Departure Time of Disposition: 23:12 Disposition: Home, Self-Care 01 Condition: Good Clinical Impression: COVID-19 - Discharge Information Instructions: COVID-19, and COVID-19 Referrals: PMD, PMD [Other] Forms: ED Department Discharge Additional Instructions: The following information is given to patients seen in the emergency department who are being discharged to home. This information is to outline your options for follow-up care. We provide all patients seen in our emergency department with a follow-up referral. The need for follow-up, as well as the timing and circumstances, are variable depending upon the specifics of your emergency department visit. If you don't have a primary care physician on staff, we will provide you with a referral. We always advise you to contact your personal physician following an emergency department visit to inform them of the circumstance of the visit and for follow-up with them and/or the need for any referrals to a consulting specialist. The emergency department will also refer you to a specialist when appropriate. This referral assures that you have the opportunity for follow-up care with a specialist. All of these measure are taken in an effort to provide you with optimal care, which includes your follow-up. Under all circumstances we always encourage you to contact your private physician who remains a resource for coordinating your care. When calling for follow-up care, please make the office aware that this follow-up is from your recent emergency room visit. If for any reason you are refused follow-up, please contact the [facility] Emergency Department at and asked to speak to the emergency department charge nurse. Sepsis Event Note (ED) - Focused Exam Vital Signs: Vital Signs Temp Pulse Resp BP Pulse Ox 10/20/19 22:37 98.7 F 102 H 18 128/78 99
[2019-10-20] MEDS ORDERED: Acetaminophen 500 MG Tab PO ONE (22:43)
== END 2019-10-20 23:32 | disposition home or self-care (01) ==
LOC: MW.ED 21:43
DX: O98.519 Other viral diseases complicating pregnancy, unspecified trimester (principal); U07.1 COVID-19
CPT/HCPCS: 99283; 99284; U0002